=== PATIENT | male | born 1970 | race American Indian/Alaskan Native ===

== ENCOUNTER 2017-02-04 05:33 | Emergency (ER) | payer OTHER ==
[2017-02-04] MEDS ORDERED: NACL ONE (07:07)
[2017-02-04 07:25] LABS: Basophils % (Auto) 0.3 % (0.0-1.8); Eosinophils % (Auto) 3.4 % (0.0-4.3); Hematocrit 45.1 % (35.5-45.6); Hemoglobin 15.2 gm/dl (11.8-15.2); Mean Corpuscular HGB Conc 34 % (32-34); Mean Corpuscular Hemoglobin 31 pg (28-32); Mean Corpuscular Volume 92 fl (84-94); Platelet Count 180 K/mm3 (140-440); Red Cell Distribution Width 13.9 % (13.2-15.2); White Blood Count 16.6 K/mm3 (4.5-11.0)
[2017-02-04 07:46] LABS: Alanine Aminotransferase 25 units/L (7-56); Albumin 3.8 g/dL (3.9-5); Albumin/Globulin Ratio 1.1 %; Alkaline Phosphatase 77 units/L (35-129); Anion Gap 19 mmol/L; BUN/Creatinine Ratio 8.23; Bilirubin,Total 0.5 mg/dL (0.1-1.2); Blood Urea Nitrogen 14 mg/dL (9-20); Calcium 8.4 mg/dL (8.4-10.2); Carbon Dioxide 23 mmol/L (22-30); Chloride 99.5 mmol/L (98-107); Glucose 112 mg/dL (75-100); Sodium 138 mmol/L (137-145); Total Protein 7.4 g/dL (6.3-8.2)
[2017-02-04 07:48] LABS: Bilirubin,Direct < 0.2 mg/dL (0-0.2)
--- NOTE | 2017-02-04 08:12 | Cat Scan Report ---
FINAL REPORT EXAM: CT HEAD/BRAIN WO CON HISTORY: Seizure TECHNIQUE: CT of the head was performed. No intravenous contrast was administered. PRIORS: None. FINDINGS: There is no evidence of intracranial hemorrhage. There is no edema, mass effect or midline shift. There are no abnormal extra-axial fluid collections. The ventricles are appropriate for brain volume. There is no skull fracture seen. There is mild sinus mucosal thickening. There is a retention cyst in the right maxillary sinus. IMPRESSION: There is no acute intracranial abnormality identified.
[2017-02-04 08:17] LABS: Urine Drugs of Abuse Note Disclamer
[2017-02-04] MEDS ORDERED: NORMODYNE IV ONE (08:51)
[2017-02-04] MEDS ORDERED: K-DUR PO ONE (09:24)
[2017-02-04] MEDS ORDERED: CATAPRES PO ONE (09:24)
[2017-02-04] MEDS ORDERED: KEPPRA PO ONE (09:25)
--- NOTE | 2017-02-04 09:26 | Emergency Department Report ---
ED Seizure HPI - General Chief Complaint: Seizure Stated Complaint: SEIZURE Time Seen by Provider: 02/04/17 06:55 Source: patient, family, EMS Mode of arrival: Stretcher Limitations: Other - History of Present Illness Initial Comments: Patient tells me he had an absence type Episode on a Plane about 6 Months Ago. In Retrospect, He Thinks This May Have Been a Seizure. Complaint: seizure -: Sudden, minutes(s) Description of Episode: tonic-clonic movement -: second(s), minutes(s) Witnessed:: Yes Trauma: Yes (tongue) Seizure History: other Place: home Possible Precipitating Event: none Associated Symptoms: denies other symptoms (suffered tongue injury) Treatments Prior to Arrival: none - Related Data Previous Rx's Medication Instructions Recorded Last Taken Type Lisinopril [Zestril TAB] 40 mg PO QDAY #30 tablet 10/15/13 Unknown Rx amLODIPine [Norvasc] 5 mg PO DAILY #30 tab 02/04/17 Unknown Rx hydrALAZINE [Apresoline TAB] 25 mg PO TID #90 tablet 02/04/17 Unknown Rx levETIRAcetam [Keppra TAB] 500 mg PO BID #1 tablet 02/04/17 Unknown Rx Allergies Allergy/AdvReac Type Severity Reaction Status Date / Time No Known Allergies Allergy Verified 10/15/13 00:45 ED Review of Systems ROS: Stated complaint: SEIZURE Other details as noted in HPI Constitutional: denies: chills, fever Eyes: denies: eye pain, eye discharge, vision change ENT: as per HPI. denies: ear pain, throat pain Respiratory: denies: cough, shortness of breath, wheezing Cardiovascular: denies: chest pain, palpitations Endocrine: no symptoms reported Gastrointestinal: denies: abdominal pain, nausea, diarrhea Genitourinary: denies: urgency, dysuria Musculoskeletal: denies: back pain, joint swelling, arthralgia Skin: denies: rash, lesions Neurological: denies: headache, weakness, paresthesias Psychiatric: denies: anxiety, depression Hematological/Lymphatic: denies: easy bleeding, easy bruising ED Past Medical Hx - Past Medical History Previous Medical History?: Yes Hx Hypertension: Yes Hx Seizures: Yes - Surgical History Additional Surgical History: left arm surg due to fx. - Social History Smoking Status: Unknown if ever smoked Substance Use Type: None - Medications Home Medications: Home Medications Medication Instructions Recorded Confirmed Last Taken Type Lisinopril [Zestril TAB] 40 mg PO QDAY #30 tablet 10/15/13 02/04/17 Unknown Rx amLODIPine [Norvasc] 5 mg PO DAILY #30 tab 02/04/17 Unknown Rx hydrALAZINE [Apresoline TAB] 25 mg PO TID #90 tablet 02/04/17 Unknown Rx levETIRAcetam [Keppra TAB] 500 mg PO BID #1 tablet 02/04/17 Unknown Rx ED Physical Exam - General Limitations: Other General appearance: alert, in no apparent distress - Head Head exam: Present: atraumatic, normocephalic - Eye Eye exam: Present: normal appearance - ENT ENT exam: Present: mucous membranes moist, other (tongue abrasion on right) - Neck Neck exam: Present: normal inspection. Absent: tenderness, meningismus - Respiratory Respiratory exam: Present: normal lung sounds bilaterally. Absent: respiratory distress - Cardiovascular Cardiovascular Exam: Present: regular rate, normal rhythm. Absent: systolic murmur, diastolic murmur, rubs, gallop - GI/Abdominal GI/Abdominal exam: Present: soft, normal bowel sounds. Absent: distended, tenderness, guarding, rebound, rigid - Rectal Rectal exam: Present: deferred - Extremities Exam Extremities exam: Present: normal inspection - Back Exam Back exam: Present: normal inspection - Neurological Exam Neurological exam: Present: alert, oriented X3, CN II-XII intact. Absent: motor sensory deficit - Psychiatric Psychiatric exam: Present: normal affect, normal mood - Skin Skin exam: Present: warm, dry, intact, normal color. Absent: rash ED Course Vital Signs 02/04/17 02/04/17 02/04/17 05:44 05:51 06:01 Temperature 98.4 F Pulse Rate 93 H 95 H 91 H Respiratory 23 20 18 Rate Blood Pressure 166/112 166/112 O2 Sat by Pulse 96 96 96 Oximetry 02/04/17 02/04/17 02/04/17 06:31 07:01 07:31 Temperature Pulse Rate 93 H 95 H 94 H Respiratory 12 11 L 11 L Rate Blood Pressure 166/112 166/112 166/112 O2 Sat by Pulse 98 99 99 Oximetry 02/04/17 02/04/17 02/04/17 08:00 08:31 09:00 Temperature Pulse Rate 89 86 83 Respiratory 10 L 12 10 L Rate Blood Pressure 195/117 195/117 164/104 O2 Sat by Pulse 100 99 99 Oximetry 02/04/17 02/04/17 02/04/17 09:02 09:11 09:20 Temperature Pulse Rate 91 H 83 83 Respiratory 14 10 L Rate Blood Pressure 195/117 164/104 172/114 O2 Sat by Pulse 100 100 Oximetry 02/04/17 02/04/17 02/04/17 09:31 09:33 09:41 Temperature Pulse Rate 84 91 H 82 Respiratory 13 11 L Rate Blood Pressure 172/114 172/114 172/114 O2 Sat by Pulse 99 100 Oximetry 02/04/17 02/04/17 02/04/17 09:51 10:00 10:11 Temperature Pulse Rate 84 81 82 Respiratory 16 20 18 Rate Blood Pressure 181/116 179/112 179/112 O2 Sat by Pulse 100 100 99 Oximetry 02/04/17 02/04/17 02/04/17 10:21 10:31 10:41 Temperature Pulse Rate 80 81 81 Respiratory 19 19 18 Rate Blood Pressure 179/112 179/112 172/106 O2 Sat by Pulse 97 98 98 Oximetry 02/04/17 02/04/17 10:51 11:00 Temperature Pulse Rate 81 80 Respiratory 20 17 Rate Blood Pressure 172/106 172/109 O2 Sat by Pulse 98 100 Oximetry - Reevaluation(s) Reevaluation #1: She remained neurologically intact. He did not develop signs of a withdrawal syndrome. He did not have any further seizure. He was given by mouth Keppra. He was given a pressure management. He was told that driving would not be permitted under [place] law until he was cleared by a neurologist. He is referred to a neurologist. He was discharged in stable condition. His potassium was repleted. 02/04/17 11:33 ED Medical Decision Making - Lab Data Result diagrams: 02/04/17 07:12 02/04/17 07:12 Laboratory Results - last 24 hr 02/04/17 02/04/17 02/04/17 07:12 07:12 07:12 WBC 16.6 H RBC 4.90 Hgb 15.2 Hct 45.1 MCV 92 MCH 31 MCHC 34 RDW 13.9 Plt Count 180 Lymph % (Auto) 6.7 L [place] % (Auto) 5.1 Eos % (Auto) 3.4 Baso % (Auto) 0.3 Lymph # 1.1 L [place] # 0.8 Eos # 0.6 H Baso # 0.0 Seg Neutrophils % 84.5 H Seg Neutrophils # 14.0 H Sodium 138 Potassium 3.0 L Chloride 99.5 Carbon Dioxide 23 Anion Gap 19 BUN 14 Creatinine 1.7 H Estimated GFR 53 BUN/Creatinine Ratio 8.23 Glucose 112 H Calcium 8.4 Total Bilirubin 0.5 Direct Bilirubin < 0.2 AST 24 ALT 25 Alkaline Phosphatase 77 Total Protein 7.4 Albumin 3.8 L Albumin/Globulin Ratio 1.1 Plasma/Serum Alcohol < 0.01 Critical care attestation.: If time is entered above; I have spent that time in minutes in the direct care of this critically ill patient, excluding procedure time. ED Disposition Clinical Impression: Grand mal seizure, Hypokalemia Hypertension Qualifiers: Hypertension type: essential hypertension Qualified Code(s): I10 - Essential ( primary) hypertension Disposition: DISCHARGED TO HOME OR SELFCARE Is pt being admited?: No Does the pt Need Aspirin: No Condition: Stable Instructions: Hypertension (ED), Recurrent Seizures Adult (ED), Hypokalemia (ED ) Additional Instructions: YOu must be cleared by a neurologist before you can safely drive or operate heavy machinery.. Rx Keppra and medicine for your blood pressure. Uric kidney function is slow and not requires follow-up with her [employer] fscm developer as well. I'm going to refer you to multiple physicians for your follow-up care. Return any acute change or problem. Dr. Cao is an neurologist. Dr. Jesus is a hypertension and kidney specialist. Dr. Cortés is a family physician. [facility] is a local clinic. Prescriptions: amLODIPine [Norvasc] 5 mg PO DAILY #30 tab hydrALAZINE [Apresoline TAB] 25 mg PO TID #90 tablet levETIRAcetam [Keppra TAB] 500 mg PO BID #1 tablet Referrals: PRIMARY CARE, [Primary Care Provider] - 3-5 Days SHANA CAO MD [Staff Physician] - 3-5 Days PATSY YIN MD [Staff Physician] - 3-5 Days KEITH CORTÉS JR, MD [Staff Physician] - 3-5 Days Time of Disposition: 11:40
[2017-02-04 12:03] VITALS: BP 167/107
== END 2017-02-04 12:03 | disposition home or self-care (01) ==
LOC: ED 05:33
DX: G40.409 Other generalized epilepsy and epileptic syndromes, not intractable, without status epilepticus (principal); I10 Essential (primary) hypertension; E87.6 Hypokalemia
CPT/HCPCS: 36415; 70450; 80048; 80074; 80307; 82962; 85025; 96374; 99285; G0480; 80320

== ENCOUNTER 2018-08-11 15:09 | Inpatient (IN) | payer OTHER ==
[2018-08-11 15:55] LABS: Bilirubin,Urine NEG (Negative); Blood,Urine LG (Negative); Mucus,Urine FEW /HPF; Urobilinogen,Urine < 2.0 mg/dL (<2.0)
[2018-08-11 15:57] LABS: Color,Urine Yellow (Yellow); Protein,Urine >500 mg/dL (Negative); RBC,Urine > 182.0 /HPF (0.0-6.0)
[2018-08-11] MEDS ORDERED: CATAPRES PO ONE (16:26)
--- NOTE | 2018-08-11 16:40 | Emergency Department Report ---
HPI - General Chief Complaint: Urogenital-Male Time Seen by Provider: 08/11/18 16:26 - HPI HPI: Room 25 The patient is a 47-year-old male presenting with a chief complaint of hematuria. The patient states the symptoms began 2 weeks ago when he had material for approximately 1 week. Patient states has been painless. The patient states he hematuria resolved but then today he return with gross hematuria that contained blood clots. Patient denies pain of any type. Patient denies any penile lesions. Patient denies dysuria. She denies any history of fever. The patient states he lost approximately 20 pounds in the past year and is unexplained. How he is feeling now the patient replies he feels fine Location: Genitourinary system Duration: [See above] Quality: Painless Severity: Gross hematuria with clots Modifying factors: None Context: [see above] Mode of transportation: Unknown ED Past Medical Hx - Past Medical History Hx Hypertension: Yes Hx Seizures: Yes - Surgical History Past Surgical History?: Yes Additional Surgical History: left arm surg due to fx. - Family History Family history: no significant - Social History Smoking Status: Never Smoker Substance Use Type: Alcohol - Medications Home Medications: Home Medications Medication Instructions Recorded Confirmed Last Taken Type Lisinopril [Zestril TAB] 40 mg PO QDAY #30 tablet 10/15/13 02/04/17 Unknown Rx amLODIPine [Norvasc] 5 mg PO DAILY #30 tab 02/04/17 Unknown Rx hydrALAZINE [Apresoline TAB] 25 mg PO TID #90 tablet 02/04/17 Unknown Rx levETIRAcetam [Keppra TAB] 500 mg PO BID #1 tablet 02/04/17 Unknown Rx ED Review of Systems ROS: Stated complaint: BLEEDING FROM PENIS Other details as noted in HPI Constitutional: denies: fever Eyes: denies: eye pain ENT: denies: throat pain Respiratory: no symptoms reported Cardiovascular: denies: chest pain Endocrine: no symptoms reported, unexplained weight loss Gastrointestinal: denies: abdominal pain Genitourinary: hematuria. denies: dysuria, testicular pain Musculoskeletal: denies: back pain Neurological: denies: headache Physical Exam - Physical Exam Vital Signs: Vital Signs 08/11/18 08/11/18 15:22 15:29 Temperature 98.2 F Pulse Rate 109 H Respiratory 18 Rate Blood Pressure 240/152 Blood Pressure 243/143 [Left] O2 Sat by Pulse 100 Oximetry Physical Exam: GENERAL: The patient is well-developed well-nourished male lying on stretcher not appearing to be in acute distress. [] HEENT: Normocephalic. Atraumatic. Extraocular motions are intact. Patient has moist mucous membranes. NECK: Supple. Trachea midline CHEST/LUNGS: Clear to auscultation. There is no respiratory distress noted. HEART/CARDIOVASCULAR: Regular. There is no tachycardia. There is no gallop rub or murmur. ABDOMEN: Abdomen is soft, nontender. Patient has normal bowel sounds. There is no abdominal distention. SKIN: There is no rash. There is no edema. There is no diaphoresis. NEURO: The patient is awake, alert, and oriented. The patient is cooperative. The patient has normal speech MUSCULOSKELETAL: There is no CVA tenderness. ED Course Vital Signs 08/11/18 08/11/18 15:22 15:29 Temperature 98.2 F Pulse Rate 109 H Respiratory 18 Rate Blood Pressure 240/152 Blood Pressure 243/143 [Left] O2 Sat by Pulse 100 Oximetry - Consultations Consultation #1: 08/11/18 17:55 [facility] called 08/11/18 18:[address] Navarro-states patient may be admitted at [facility] ED Medical Decision Making - Lab Data Result diagrams: 08/11/18 16:34 08/11/18 16:34 Laboratory Tests 08/11/18 08/11/18 08/11/18 16:34 16:34 16:34 WBC 8.3 RBC 4.10 Hgb 13.4 Hct 39.3 MCV 96 H MCH 33 H MCHC 34 RDW 14.1 Plt Count 189 Lymph % (Auto) 12.7 L [place] % (Auto) 5.7 Eos % (Auto) 3.6 Baso % (Auto) 0.9 Lymph # 1.1 L [place] # 0.5 Eos # 0.3 Baso # 0.1 Seg Neutrophils % 77.1 H Seg Neutrophils # 6.4 PT 14.0 INR 1.03 APTT 25.8 Sodium 138 Potassium 2.8 L* Chloride 96.8 L Carbon Dioxide 29 Anion Gap 15 BUN 36 H Creatinine 3.8 H Estimated GFR 21 BUN/Creatinine Ratio 9 Glucose 106 H Calcium 9.0 Total Bilirubin 0.70 AST 30 ALT 27 Alkaline Phosphatase 68 Total Protein 7.3 Albumin 3.8 L Albumin/Globulin Ratio 1.1 Urine Color Urine Turbidity Urine pH Ur Specific [place] Urine Protein Urine Glucose (UA) Urine Ketones Urine Blood Urine Nitrite Urine Bilirubin Urine Urobilinogen Ur Leukocyte Esterase Urine WBC (Auto) Urine RBC (Auto) U Epithel Cells (Auto) Urine Mucus 08/11/18 Unknown WBC RBC Hgb Hct MCV MCH MCHC RDW Plt Count Lymph % (Auto) [place] % (Auto) Eos % (Auto) Baso % (Auto) Lymph # [place] # Eos # Baso # Seg Neutrophils % Seg Neutrophils # PT INR APTT Sodium Potassium Chloride Carbon Dioxide Anion Gap BUN Creatinine Estimated GFR BUN/Creatinine Ratio Glucose Calcium Total Bilirubin AST ALT Alkaline Phosphatase Total Protein Albumin Albumin/Globulin Ratio Urine Color Yellow Urine Turbidity Slightly-cloudy Urine pH 5.0 Ur Specific [place] 1.018 Urine Protein >500 Urine Glucose (UA) Neg Urine Ketones Neg Urine Blood Lg Urine Nitrite Neg Urine Bilirubin Neg Urine Urobilinogen < 2.0 Ur Leukocyte Esterase Neg Urine WBC (Auto) 5.0 Urine RBC (Auto) > 182.0 U Epithel Cells (Auto) 2.0 Urine Mucus Few - Differential Diagnosis bladder mass, cystitis, renal mass, renal colic Critical care attestation.: If time is entered above; I have spent that time in minutes in the direct care of this critically ill patient, excluding procedure time. ED Disposition Clinical Impression: Hematuria, Acute renal failure, Bilateral pleural effusion, Hypokalemia, Hypertensive urgency Disposition: OP ADMIT IP TO THIS HOSP Is pt being admited?: Yes Does the pt Need Aspirin: No Condition: Fair Referrals: PRIMARY CARE, [Primary Care Provider] - 3-5 Days Time of Disposition: 18:15 (hospitalist paged (Dr Lozada))
[2018-08-11 16:53] LABS: Basophils # (Auto) 0.1 K/mm3 (0.0-0.1); Basophils % (Auto) 0.9 % (0.0-1.8); Eosinophils # (Auto) 0.3 K/mm3 (0.0-0.4); Eosinophils % (Auto) 3.6 % (0.0-4.3); Hematocrit 39.3 % (35.5-45.6); Hemoglobin 13.4 gm/dl (11.8-15.2); Lymphocytes # (Auto) 1.1 K/mm3 (1.2-5.4); Lymphocytes % (Auto) 12.7 % (13.4-35.0); Mean Corpuscular HGB Conc 34 % (32-34); Mean Corpuscular Hemoglobin 33 pg (28-32); Mean Corpuscular Volume 96 fl (84-94); Monocytes # (Auto) 0.5 K/mm3 (0.0-0.8); Monocytes % (Auto) 5.7 % (0.0-7.3); Platelet Count 189 K/mm3 (140-440); Red Cell Distribution Width 14.1 % (13.2-15.2)
[2018-08-11 17:06] LABS: Albumin 3.8 g/dL (3.9-5)
[2018-08-11 17:17] LABS: INR 1.03 (0.87-1.13)
[2018-08-11 17:18] LABS: Partial Thromboplastin Time 25.8 Sec. (24.2-36.6)
--- NOTE | 2018-08-11 17:40 | Cat Scan Report ---
FINAL REPORT PROCEDURE: CT ABDOMEN PELVIS WO CON TECHNIQUE: Computerized axial tomography of the abdomen and pelvis was performed without intravenous contrast. This study is performed without intravascular contrast material and its sensitivity for abdominal and pelvic pathology, including neoplasms, inflammation, abscess, free fluid, thrombosis, arterial dissection and infarction, is reduced compared with a contrast enhanced study. HISTORY: hematuria, weight loss, acute renal failure COMPARISON: No prior studies are available for comparison. FINDINGS: Visualized lower thorax: Prominent heart size. Bilateral layering pleural effusions Liver: Normal size and attenuation. Spleen: Normal size and attenuation. Gallbladder and biliary system: Normal. Pancreas: Normal. Adrenals: Normal. Kidneys: No hydronephrosis or urolithiasis. GI tract: Appendix is visualized and does not appear inflamed. No bowel obstruction or inflammation is seen. Lymph nodes and mesentery: Normal. Vasculature: Normal. Bladder: Normal. Reproductive organs: Normal. Peritoneum: No free fluid. Musculoskeletal structures: There are degenerative disc changes at L5-S1. Other: None. IMPRESSION: Prominent heart size and bilateral pleural effusions. No bowel obstruction or inflammation. No hydronephrosis or urolithiasis.
--- NOTE | 2018-08-11 21:22 | History and Physical Report ---
History of Present Illness Date of examination: 08/11/18 Date of admission: 08/11/18 Chief complaint: Blood clots per urethra 1 day History of present illness: JOHNY The patient is a 47-year-old male presenting with a chief complaint of hematuria. The patient states the symptoms began 2 weeks ago when he had material for approximately 1 week. Patient states has been painless. The patient states he hematuria resolved but then today he return with gross hematuria that contained blood clots. Patient denies pain of any type. Patient denies any penile lesions. Patient denies dysuria. She denies any history of fever. The patient states he lost approximately 20 pounds in the past year and is unexplained. Now he is feeling better now. Past Medical History Hx Hypertension: Yes Hx Seizures: Yes Surgical History Past Surgical History?: Yes Additional Surgical History: left arm surg due to fx. Family History Family history: no significant Social History Smoking Status: Never Smoker Substance Use Type: Alcohol - Medications Home Medications: Home Medications Medication Instructions Recorded Confirmed Last Taken Type Lisinopril [Zestril TAB] 40 mg PO QDAY #30 tablet 10/15/13 02/04/17 Unknown Rx amLODIPine [Norvasc] 5 mg PO DAILY #30 tab 02/04/17 Unknown Rx hydrALAZINE [Apresoline TAB] 25 mg PO TID #90 tablet 02/04/17 Unknown Rx levETIRAcetam [Keppra TAB] 500 mg PO BID #1 tablet 02/04/17 Unknown Rx Review of Systems Stated complaint: BLEEDING FROM PENIS Other details as noted in HPI Constitutional: denies: fever Eyes: denies: eye pain ENT: denies: throat pain Respiratory: no symptoms reported Cardiovascular: denies: chest pain Endocrine: no symptoms reported, unexplained weight loss Gastrointestinal: denies: abdominal pain Genitourinary: hematuria. denies: dysuria, testicular pain Musculoskeletal: denies: back pain Neurological: denies: headache Medications and Allergies Allergies Allergy/AdvReac Type Severity Reaction Status Date / Time No Known Allergies Allergy Verified 10/15/13 00:45 Home Medications Medication Instructions Recorded Confirmed Last Taken Type Lisinopril [Zestril TAB] 40 mg PO QDAY #30 tablet 10/15/13 02/04/17 Unknown Rx amLODIPine [Norvasc] 5 mg PO DAILY #30 tab 02/04/17 Unknown Rx hydrALAZINE [Apresoline TAB] 25 mg PO TID #90 tablet 02/04/17 Unknown Rx levETIRAcetam [Keppra TAB] 500 mg PO BID #1 tablet 02/04/17 Unknown Rx Exam - Constitutional Vitals: Temp Pulse Resp BP Pulse Ox 98.2 F 100 H 18 208/137 98 08/11/18 15:22 08/11/18 17:00 08/11/18 17:25 08/11/18 17:45 08/11/18 17:45 General appearance: Present: no acute distress, well-nourished - EENT Eyes: Present: PERRL ENT: hearing intact, clear oral mucosa - Neck Neck: Present: supple, normal ROM - Respiratory Respiratory effort: normal Respiratory: bilateral: CTA - Cardiovascular Heart rate: 78 Rhythm: regular Heart Sounds: Present: S1 & S2. Absent: rub, click - Extremities Extremities: pulses symmetrical, No edema Peripheral Pulses: within normal limits - Abdominal General gastrointestinal: Present: soft, non-tender, non-distended, normal bowel sounds Male genitourinary: Present: normal - Rectal Rectal Exam: deferred - Integumentary Integumentary: Present: clear, warm, dry - Musculoskeletal Musculoskeletal: gait normal, strength equal bilaterally - Psychiatric Psychiatric: appropriate mood/affect, intact judgment & insight - Neurologic Neurologic: CNII-XII intact, moves all extremities - Allied Health Allied health notes reviewed: nursing, case management Results - Labs CBC & Chem 7: 08/12/18 06:54 08/11/18 16:34 Labs: Laboratory Last Values WBC 8.3 K/mm3 (4.5-11.0) 08/11/18 16:34 RBC 4.10 M/mm3 (3.65-5.03) 08/11/18 16:34 Hgb 13.4 gm/dl (11.8-15.2) 08/11/18 16:34 Hct 39.3 % (35.5-45.6) 08/11/18 16:34 MCV 96 fl (84-94) H 08/11/18 16:34 MCH 33 pg (28-32) H 08/11/18 16:34 MCHC 34 % (32-34) 08/11/18 16:34 RDW 14.1 % (13.2-15.2) 08/11/18 16:34 Plt Count 189 K/mm3 (140-440) 08/11/18 16:34 Lymph % (Auto) 12.7 % (13.4-35.0) L 08/11/18 16:34 [place] % (Auto) 5.7 % (0.0-7.3) 08/11/18 16:34 Eos % (Auto) 3.6 % (0.0-4.3) 08/11/18 16:34 Baso % (Auto) 0.9 % (0.0-1.8) 08/11/18 16:34 Lymph # 1.1 K/mm3 (1.2-5.4) L 08/11/18 16:34 [place] # 0.5 K/mm3 (0.0-0.8) 08/11/18 16:34 Eos # 0.3 K/mm3 (0.0-0.4) 08/11/18 16:34 Baso # 0.1 K/mm3 (0.0-0.1) 08/11/18 16:34 Seg Neutrophils % 77.1 % (40.0-70.0) H 08/11/18 16:34 Seg Neutrophils # 6.4 K/mm3 (1.8-7.7) 08/11/18 16:34 PT 14.0 Sec. (12.2-14.9) 08/11/18 16:34 INR 1.03 (0.87-1.13) 08/11/18 16:34 APTT 25.8 Sec. (24.2-36.6) 08/11/18 16:34 Sodium 138 mmol/L (137-145) 08/11/18 16:34 Potassium 2.8 mmol/L (3.6-5.0) L* 08/11/18 16:34 Chloride 96.8 mmol/L (98-107) L 08/11/18 16:34 Carbon Dioxide 29 mmol/L (22-30) 08/11/18 16:34 Anion Gap 15 mmol/L 08/11/18 16:34 BUN 36 mg/dL (9-20) H 08/11/18 16:34 Creatinine 3.8 mg/dL (0.8-1.5) H 08/11/18 16:34 Estimated GFR 21 ml/min 08/11/18 16:34 BUN/Creatinine Ratio 9 % 08/11/18 16:34 Glucose 106 mg/dL (75-100) H 08/11/18 16:34 Calcium 9.0 mg/dL (8.4-10.2) 08/11/18 16:34 Total Bilirubin 0.70 mg/dL (0.1-1.2) 08/11/18 16:34 AST 30 units/L (5-40) 08/11/18 16:34 ALT 27 units/L (7-56) 08/11/18 16:34 Alkaline Phosphatase 68 units/L (35-129) 08/11/18 16:34 Total Protein 7.3 g/dL (6.3-8.2) 08/11/18 16:34 Albumin 3.8 g/dL (3.9-5) L 08/11/18 16:34 Albumin/Globulin Ratio 1.1 % 08/11/18 16:34 Urine Color Yellow (Yellow) 08/11/18 Unknown Urine Turbidity Slightly-cloudy (Clear) 08/11/18 Unknown Urine pH 5.0 (5.0-7.0) 08/11/18 Unknown Ur Specific [place] 1.018 (1.003-1.030) 08/11/18 Unknown Urine Protein >500 mg/dL (Negative) 08/11/18 Unknown Urine Glucose (UA) Neg mg/dL (Negative) 08/11/18 Unknown Urine Ketones Neg mg/dL (Negative) 08/11/18 Unknown Urine Blood Lg (Negative) 08/11/18 Unknown Urine Nitrite Neg (Negative) 08/11/18 Unknown Urine Bilirubin Neg (Negative) 08/11/18 Unknown Urine Urobilinogen < 2.0 mg/dL (<2.0) 08/11/18 Unknown Ur Leukocyte Esterase Neg (Negative) 08/11/18 Unknown Urine WBC (Auto) 5.0 /HPF (0.0-6.0) 08/11/18 Unknown Urine RBC (Auto) > 182.0 /HPF (0.0-6.0) 08/11/18 Unknown U Epithel Cells (Auto) 2.0 /HPF (0-13.0) 08/11/18 Unknown Urine Mucus Few /HPF 08/11/18 Unknown - Imaging and Cardiology EKG: report reviewed Imaging and Cardiology: Abd CT: IMPRESSION: Prominent heart size and bilateral pleural effusions. No bowel obstruction or inflammation. No hydronephrosis or urolithiasis. Assessment and Plan Advance Directives: Yes (Full code) VTE prophylaxis?: Chemical Plan of care discussed with patient/family: Yes - Patient Problems (1) Hematuria Current Visit: Yes Status: Acute Qualifiers: Hematuria type: gross Qualified Code(s): R31.0 - Gross hematuria Plan to address problem: R/o Bladder carcinoma Urology consult (2) Hypokalemia Current Visit: Yes Status: Acute Plan to address problem: Supplemented (3) Hypertensive urgency Current Visit: Yes Status: Acute Plan to address problem: Noncompliance IV Hydralazine prn (4) Seizure disorder Current Visit: Yes Status: Chronic Plan to address problem: Cont Keppra (5) DVT prophylaxis Current Visit: Yes Status: Acute Plan to address problem: Only scd's
[2018-08-11] MEDS ORDERED: DILAUDID IV PRN (21:23)
[2018-08-11] MEDS ORDERED: SODIUM CHLORIDE FLUSH SYRINGE 10 ML IV PRN (21:23)
[2018-08-11] MEDS ORDERED: ZOFRAN IV PRN (21:23)
[2018-08-11] MEDS ORDERED: MORPHINE IV PRN (21:23)
[2018-08-11] MEDS ORDERED: PERCOCET 5/325 PO PRN (21:23)
[2018-08-11] MEDS ORDERED: TYLENOL PO PRN (21:23)
[2018-08-11] MEDS: SODIUM CHLORIDE FLUSH SYRINGE 10 ML IV SCH (22:25)
[2018-08-11] MEDS: D5NS 1,000 ML IV SCH (22:30)
[2018-08-11] MEDS: K-DUR PO SCH (22:30)
[2018-08-11] MEDS: NORVASC PO SCH (22:30)
[2018-08-11] MEDS: KEPPRA PO SCH (22:30)
[2018-08-11] MEDS: KCL 10MEQ/100ML 10 MEQ/100 ML BAG IV SCH (22:30)
[2018-08-11] MEDS: ZESTRIL PO SCH (23:00)
[2018-08-12] MEDS ORDERED: APRESOLINE IV PRN ×2 (02:04→07:41)
[2018-08-12] MEDS: KCL 10MEQ/100ML 10 MEQ/100 ML BAG IV SCH ×3 (02:20→04:28)
[2018-08-12] MEDS: K-DUR PO SCH ×2 (03:31→06:27)
[2018-08-12 07:18] LABS: Basophils # (Auto) 0.1 K/mm3 (0.0-0.1); Basophils % (Auto) 1.4 % (0.0-1.8); Eosinophils # (Auto) 0.3 K/mm3 (0.0-0.4); Eosinophils % (Auto) 4.8 % (0.0-4.3); Hematocrit 40.9 % (35.5-45.6); Hemoglobin 13.5 gm/dl (11.8-15.2); Lymphocytes # (Auto) 1.1 K/mm3 (1.2-5.4); Lymphocytes % (Auto) 15.8 % (13.4-35.0); Mean Corpuscular HGB Conc 33 % (32-34); Mean Corpuscular Hemoglobin 32 pg (28-32); Mean Corpuscular Volume 98 fl (84-94); Monocytes # (Auto) 0.4 K/mm3 (0.0-0.8); Monocytes % (Auto) 5.9 % (0.0-7.3); Platelet Count 184 K/mm3 (140-440); Red Blood Count 4.17 M/mm3 (3.65-5.03); Red Cell Distribution Width 14.6 % (13.2-15.2)
[2018-08-12 07:37] LABS: Albumin 3.7 g/dL (3.9-5); Calcium 8.4 mg/dL (8.4-10.2)
[2018-08-12] MEDS: D5NS 1,000 ML IV SCH (07:51)
[2018-08-12] MEDS: APRESOLINE PO SCH ×3 (08:11→22:44)
--- NOTE | 2018-08-12 09:56 | Progress Note ---
Assessment and Plan (1) Hematuria - resolved Current Visit: Yes Status: Acute Qualifiers: Hematuria type: gross Qualified Code(s): R31.0 - Gross hematuria Plan to address problem: R/o Bladder carcinoma Urology consult (2) Hypokalemia - Current Visit: Yes Status: Acute Plan to address problem: (3) Hypertensive urgency -cresolved Current Visit: Yes Status: Acute Plan to address problem: Noncompliance IV Hydralazine prn (4) Seizure disorder Current Visit: Yes Status: Chronic Plan to address problem: Cont Keppra (5) DVT prophylaxis Current Visit: Yes Status: Acute Plan to address problem: Only scd's Subjective Date of service: 08/12/18 Principal diagnosis: hematuria Interval history: Normal blood in the urine. No fever. No dysuria. Objective - Exam Narrative Exam: Constitutional: Well-nourished well-developed. In no distress Head: Normocephalic atraumatic Eyes: Pupils are equal round and reactive to light Nose: No enlarged turbinates, no septal deviation. Mouth: Moist mucous membranes. Neck: Supple no thyromegaly. No bruit. No JVD Heart: Regular rate and rhythm, S1-S2 abnormal. No rubs murmurs or gallop Lungs: Clear to auscultation bilaterally no rales or rhonchi Abdomen: Soft, nontender. Bowel sound are present. Extremities: No edema no cyanosis and no clubbing. Neuro: Alert oriented Oriented x3. No focal sensory or motor deficit. Skin: No rashes no hyperemic spots Psychiatry: Euthymic. Calm. - Constitutional Vitals: Vital Signs - 12hr 08/11/18 08/11/18 08/11/18 22:30 23:00 23:14 Temperature Pulse Rate 97 H 97 H 96 H Pulse Rate [ Right Radial] Respiratory 16 16 Rate Blood Pressure 215/137 212/133 Blood Pressure 191/121 [Left] O2 Sat by Pulse 98 97 Oximetry 08/11/18 08/11/18 08/12/18 23:41 23:53 02:19 Temperature 98.4 F Pulse Rate 98 H 99 H Pulse Rate [ Right Radial] Respiratory 18 20 Rate Blood Pressure 205/119 205/119 Blood Pressure [Left] O2 Sat by Pulse 98 98 Oximetry 08/12/18 08/12/18 08/12/18 05:00 08:11 08:12 Temperature 97.8 F Pulse Rate 92 H 92 H Pulse Rate [ 92 H Right Radial] Respiratory 18 20 Rate Blood Pressure 127/85 127/85 Blood Pressure [Left] O2 Sat by Pulse 97 Oximetry - Labs CBC & Chem 7: 08/12/18 06:54 08/12/18 06:54 Labs: Abnormal lab results 08/11/18 08/11/18 08/12/18 Range/Units 16:34 16:34 06:54 MCV 96 H 98 H (84-94) fl MCH 33 H (28-32) pg Lymph % (Auto) 12.7 L (13.4-35.0) % Eos % (Auto) 4.8 H (0.0-4.3) % Lymph # 1.1 L 1.1 L (1.2-5.4) K/mm3 Seg Neutrophils % 77.1 H 72.1 H (40.0-70.0) % Potassium 2.8 L* (3.6-5.0) mmol/L Chloride 96.8 L (98-107) mmol/L BUN 36 H (9-20) mg/dL Creatinine 3.8 H (0.8-1.5) mg/dL Glucose 106 H (75-100) mg/dL Albumin 3.8 L (3.9-5) g/dL 08/12/18 Range/Units 06:54 MCV (84-94) fl MCH (28-32) pg Lymph % (Auto) (13.4-35.0) % Eos % (Auto) (0.0-4.3) % Lymph # (1.2-5.4) K/mm3 Seg Neutrophils % (40.0-70.0) % Potassium (3.6-5.0) mmol/L Chloride (98-107) mmol/L BUN 33 H (9-20) mg/dL Creatinine 3.8 H (0.8-1.5) mg/dL Glucose (75-100) mg/dL Albumin 3.7 L (3.9-5) g/dL
[2018-08-12] MEDS: NORVASC PO SCH (10:31)
[2018-08-12] MEDS: KEPPRA PO SCH ×2 (10:32→22:44)
[2018-08-12] MEDS: ZESTRIL PO SCH (10:33)
[2018-08-12] MEDS: SODIUM CHLORIDE FLUSH SYRINGE 10 ML IV SCH ×2 (10:34→22:44)
--- NOTE | 2018-08-12 11:54 | Consultation ---
History of Present Illness - Reason for Consult Consult date: 08/12/18 - History of Present Illness The patient is a 47-year-old male presenting with a chief complaint of hematuria. The patient states the symptoms began 2 weeks ago. Patient states has been painless. The patient states he hematuria resolved but then today he return with gross hematuria that contained blood clots. Patient denies pain of any type. Patient denies any penile lesions. Patient denies dysuria. She denies any history of fever. The patient states he lost approximately 20 pounds in the past year and is unexplained. Now he is feeling better now. no previous gu hx CTAP - bilateral pleural effusions, DJD spine abd soft normal phallus A/P Gross Hemturia pt will need cysto 7:30 am tomorrow NPG after MN Medications and Allergies Allergies Allergy/AdvReac Type Severity Reaction Status Date / Time No Known Allergies Allergy Verified 10/15/13 00:45 Home Medications Medication Instructions Recorded Confirmed Last Taken Type Lisinopril [Zestril TAB] 40 mg PO QDAY #30 tablet 10/15/13 02/04/17 Unknown Rx amLODIPine [Norvasc] 5 mg PO DAILY #30 tab 02/04/17 Unknown Rx hydrALAZINE [Apresoline TAB] 25 mg PO TID #90 tablet 02/04/17 Unknown Rx levETIRAcetam [Keppra TAB] 500 mg PO BID #1 tablet 02/04/17 Unknown Rx Active Meds: Active Medications Acetaminophen (Tylenol) 650 mg PO Q4H PRN PRN Reason: Pain MILD(1-3)/Fever >100.5/VILLALOBOS Amlodipine Besylate (Norvasc) 5 mg PO DAILY [facility] Last Admin: 08/12/18 10:31 Dose: 5 mg Hydralazine HCl (Apresoline) 25 mg PO TID [facility] Last Admin: 08/12/18 08:11 Dose: 25 mg Hydralazine HCl (Apresoline) 10 mg IV Q3H PRN PRN Reason: Blood Pressure Hydromorphone HCl (Dilaudid) 1 mg IV Q3H PRN PRN Reason: Pain , Severe (7-10) Dextrose/Sodium Chloride (D5ns) 1,000 mls @ 100 mls/hr IV DIRECT [facility] Last Admin: 08/12/18 07:51 Dose: 100 mls/hr Levetiracetam (Keppra) 500 mg PO BID [facility] Last Admin: 08/12/18 10:32 Dose: 500 mg Lisinopril (Zestril) 40 mg PO QDAY [facility] Last Admin: 08/12/18 10:33 Dose: 40 mg Morphine Sulfate (Morphine) 2 mg IV Q4H PRN PRN Reason: Pain, Moderate (4-6) Ondansetron HCl (Zofran) 4 mg IV Q8H PRN PRN Reason: Nausea And Vomiting Oxycodone/Acetaminophen (Percocet 5/325) 1 tab PO Q6H PRN PRN Reason: Pain, Moderate (4-6) Sodium Chloride (Sodium Chloride Flush Syringe 10 Ml) 10 ml IV BID [facility] Last Admin: 08/12/18 10:34 Dose: 10 ml Sodium Chloride (Sodium Chloride Flush Syringe 10 Ml) 10 ml IV PRN PRN PRN Reason: LINE FLUSH Exam - Constitutional Vitals: Temp Pulse Resp BP Pulse Ox 97.8 F 90 20 116/76 97 08/12/18 05:00 08/12/18 10:33 08/12/18 08:12 08/12/18 10:33 08/12/18 05:00 Results - Labs CBC & Chem 7: 08/12/18 06:54 08/12/18 06:54 Labs: Abnormal lab results 08/11/18 08/11/18 08/12/18 Range/Units 16:34 16:34 06:54 MCV 96 H 98 H (84-94) fl MCH 33 H (28-32) pg Lymph % (Auto) 12.7 L (13.4-35.0) % Eos % (Auto) 4.8 H (0.0-4.3) % Lymph # 1.1 L 1.1 L (1.2-5.4) K/mm3 Seg Neutrophils % 77.1 H 72.1 H (40.0-70.0) % Potassium 2.8 L* (3.6-5.0) mmol/L Chloride 96.8 L (98-107) mmol/L BUN 36 H (9-20) mg/dL Creatinine 3.8 H (0.8-1.5) mg/dL Glucose 106 H (75-100) mg/dL Albumin 3.8 L (3.9-5) g/dL 08/12/18 Range/Units 06:54 MCV (84-94) fl MCH (28-32) pg Lymph % (Auto) (13.4-35.0) % Eos % (Auto) (0.0-4.3) % Lymph # (1.2-5.4) K/mm3 Seg Neutrophils % (40.0-70.0) % Potassium (3.6-5.0) mmol/L Chloride (98-107) mmol/L BUN 33 H (9-20) mg/dL Creatinine 3.8 H (0.8-1.5) mg/dL Glucose (75-100) mg/dL Albumin 3.7 L (3.9-5) g/dL
--- NOTE | 2018-08-12 14:20 | Anesthesia Consultation ---
Anesthesia Consult and Med Hx Date of service: 08/12/18 - Airway Anesthetic Teeth Evaluation: Poor ROM Head & Neck: Adequate Mental/Hyoid Distance: Adequate Mallampati Class: Class II Intubation Access Assessment: Probably Good - Pre-Operative Health Status ASA Pre-Surgery Classification: ASA2 Proposed Anesthetic Plan: General - Pulmonary Hx Smoking: No - Cardiovascular System Hx Hypertension: Yes - Central Nervous System Hx Seizures: Yes Hx Psychiatric Problems: No - Other Systems Hx Cancer: No
[2018-08-13] MEDS: D5NS 1,000 ML IV SCH (02:55)
[2018-08-13] MEDS ORDERED: ceFAZolin 2 GM in NACL 0.9% 100 ML IV ONE (06:29)
[2018-08-13] MEDS ORDERED: ANCEF/STERILE WATER 2 GM/20 ML 2 GM/20 ML SYRINGE IV NR (06:30)
[2018-08-13] MEDS ORDERED: VERSED IV PRN (06:56)
[2018-08-13] MEDS ORDERED: LACTATED RINGERS 1,000 ML IV SCH (07:00)
[2018-08-13] MEDS ORDERED: NACL 0.9% 1000 ML 1,000 ML ONE (07:15)
[2018-08-13] MEDS ORDERED: DILAUDID IV PRN (07:39)
--- NOTE | 2018-08-13 07:39 | Anesthesia Day of Surgery ---
Anesthesia Day of Surgery - Day of Surgery Patient Examined: Yes Patient H&P Reviewed: Yes Patient is NPO: Yes
[2018-08-13] MEDS ORDERED: SUBLIMAZE ONE (07:43)
[2018-08-13] MEDS ORDERED: DIPRIVAN 10 MG/ML IV ONE (07:43)
[2018-08-13] MEDS ORDERED: XYLOCAINE MPF 2% ONE (07:43)
[2018-08-13] MEDS ORDERED: NORMODYNE IV ONE (07:55)
--- NOTE | 2018-08-13 08:17 | Progress Note ---
Subjective Date of service: 08/13/18 Principal diagnosis: hematuria Interval history: The patient is a 47-year-old male presenting with a chief complaint of hematuria. The patient states the symptoms began 2 weeks ago. Patient states has been painless. The patient states he hematuria resolved but then today he return with gross hematuria that contained blood clots. Patient denies pain of any type. Patient denies any penile lesions. Patient denies dysuria. She denies any history of fever. The patient states he lost approximately 20 pounds in the past year and is unexplained. Now he is feeling better now. no previous gu hx CTAP - bilateral pleural effusions, DJD spine ?family hx of heart disease per pt this morning----pt BP high found to have abnormal heart tracing in operative suite discussed with anesthesia----surgery cancelled needs cardiac eval spoke with Objective - Constitutional Vitals: Vital Signs - 12hr 08/12/18 08/12/18 08/13/18 22:44 23:11 05:03 Temperature 98.8 F 99.0 F Pulse Rate 94 H 94 H 93 H Respiratory 20 20 Rate Blood Pressure 149/94 154/96 150/94 Blood Pressure [Left] O2 Sat by Pulse 97 98 Oximetry 08/13/18 08/13/18 08/13/18 06:08 06:19 06:20 Temperature 98.4 F Pulse Rate 100 H 100 H 100 H Respiratory Rate Blood Pressure 193/115 Blood Pressure 215/119 193/115 [Left] O2 Sat by Pulse Oximetry - Labs CBC & Chem 7: 08/12/18 06:54 08/12/18 06:54
[2018-08-13] MEDS: KEPPRA PO SCH ×2 (10:25→21:17)
[2018-08-13] MEDS: NORVASC PO SCH (10:25)
[2018-08-13] MEDS: ZESTRIL PO SCH (10:27)
[2018-08-13] MEDS: APRESOLINE PO SCH ×3 (10:33→21:17)
--- NOTE | 2018-08-13 11:04 | Consultation ---
History of Present Illness Consult date: 08/13/18 Consult reason: pre op evaluation History of present illness: Patient is a 47-year-old man who is admitted to the hospital with acute onset hematuria. Today, he was undergoing cystoscopy procedure, and just before induction of anesthesia he was placed on a monitor tech, which reported abnormal ST depression. This prompted a cancellation of the surgical procedure and cardiac consultation was requested. The patient has no cardiac symptoms. There is no chest pain, no shortness of breath, no palpitations, no lower extremity edema. His past medical history is notable for chronic hypertension, for which he admits to poor medical compliance and outpatient follow-up over the years. He also has a history of seizure disorder and chronic kidney disease. There is no cardiac history. I reviewed his ECG done after constellation of his surgery. There is normal sinus rhythm, left ventricular hypertrophy with repolarization abnormalities of LVH, consistent with his chronic hypertension. In comparison with an ECG dated back to 2012, there are no new changes except for enhanced prominence of the repolarization abnormalities of LVH. With regards to his chronic kidney disease, there has been an acute worsening of his creatinine. It was 1.7 about a year ago 2017, and on this presentation it is 3.8. Past History Past Medical History: hypertension, renal failure, seizures Medications and Allergies Allergies Allergy/AdvReac Type Severity Reaction Status Date / Time No Known Allergies Allergy Verified 10/15/13 00:45 Home Medications Medication Instructions Recorded Confirmed Last Taken Type Lisinopril [Zestril TAB] 40 mg PO QDAY #30 tablet 10/15/13 02/04/17 Unknown Rx amLODIPine [Norvasc] 5 mg PO DAILY #30 tab 02/04/17 Unknown Rx hydrALAZINE [Apresoline TAB] 25 mg PO TID #90 tablet 02/04/17 Unknown Rx levETIRAcetam [Keppra TAB] 500 mg PO BID #1 tablet 02/04/17 Unknown Rx Active Meds: Active Medications Acetaminophen (Tylenol) 650 mg PO Q4H PRN PRN Reason: Pain MILD(1-3)/Fever >100.5/VILLALOBOS Hydralazine HCl (Apresoline) 25 mg PO TID [facility] Last Admin: 08/13/18 10:33 Dose: 25 mg Hydralazine HCl (Apresoline) 10 mg IV Q3H PRN PRN Reason: Blood Pressure Last Admin: 08/13/18 06:19 Dose: 10 mg Hydromorphone HCl (Dilaudid) 1 mg IV Q3H PRN PRN Reason: Pain , Severe (7-10) Hydromorphone HCl (Dilaudid) 0.5 mg IV Q10MIN PRN PRN Reason: Pain , Severe (7-10) Stop: 08/13/18 20:00 Dextrose/Sodium Chloride (D5ns) 1,000 mls @ 100 mls/hr IV DIRECT [facility] Last Admin: 08/13/18 02:55 Dose: 100 mls/hr Cefazolin Sodium (Ancef/Sterile Water 2 Gm/20 Ml) 2 gm in 20 mls @ 80 mls/hr IV PREOP NR Stop: 08/13/18 17:00 Lactated Ringer's (Lactated Ringers) 1,000 mls @ 75 mls/hr IV DIRECT [facility] Stop: 08/14/18 06:59 Last Admin: 08/13/18 07:20 Dose: 75 mls/hr Levetiracetam (Keppra) 500 mg PO BID [facility] Last Admin: 08/13/18 10:25 Dose: 500 mg Midazolam HCl (Versed) 2 mg IV PREOP PRN PRN Reason: Anxiety Stop: 08/13/18 23:59 Last Admin: 08/13/18 07:20 Dose: 2 mg Morphine Sulfate (Morphine) 2 mg IV Q4H PRN PRN Reason: Pain, Moderate (4-6) Nifedipine (Procardia Xl) 60 mg PO QDAY [facility] Ondansetron HCl (Zofran) 4 mg IV Q8H PRN PRN Reason: Nausea And Vomiting Oxycodone/Acetaminophen (Percocet 5/325) 1 tab PO Q6H PRN PRN Reason: Pain, Moderate (4-6) Sodium Chloride (Sodium Chloride Flush Syringe 10 Ml) 10 ml IV BID [facility] Last Admin: 08/12/18 22:44 Dose: 10 ml Sodium Chloride (Sodium Chloride Flush Syringe 10 Ml) 10 ml IV PRN PRN PRN Reason: LINE FLUSH Review of Systems Cardiovascular: shortness of breath, no chest pain, no orthopnea, no palpitations, no rapid/irregular heart beat, no edema, no syncope, no lightheadedness Physical Examination Vital Signs Temp Pulse Resp BP Pulse Ox 98.2 F 109 H 18 240/152 100 08/11/18 15:22 08/11/18 15:22 08/11/18 15:22 08/11/18 15:22 08/11/18 15:22 General appearance: no acute distress HEENT: Positive: PERRL Neck: Positive: neck supple Cardiac: Positive: Reg Rate and Rhythm Lungs: Positive: Decreased Breath Sounds Neuro: Positive: Grossly Intact Abdomen: Positive: Soft Male genitourinary: Positive: deferred Skin: Positive: Clear Extremities: Absent: edema Results 08/12/18 06:54 08/12/18 06:54 EKG interpretations - Telemetry EKG Rhythm: Sinus Rhythm Repolarization changes or abnormalities: repolarization abn secondary to ventricular hypertrophy Assessment and Plan - Patient Problems (1) Preoperative cardiovascular examination Current Visit: Yes Status: Acute Plan to address problem: Patient has no cardiac symptoms, looks and feels well, ECG as described changes of left ventricular hypertrophy consistent with his chronic and often poorly controlled hypertension. It is okay to proceed with cystoscopy, low cardiac risk, we will add additional recommendations for perioperative blood pressure management. (2) Hypertension Current Visit: Yes Status: Acute Plan to address problem: We will discontinue lisinopril due to his accelerating kidney disease, stop amlodipine and use Procardia XL and a beta kira for hypertension management. I will recommend consultation with the product marketing specialist for management of his acute on chronic renal failure.
[2018-08-13] MEDS: PROCARDIA XL PO SCH (12:09)
--- NOTE | 2018-08-13 13:03 | Consultation ---
History of Present Illness - Reason for Consult Consult date: 08/13/18 acute renal failure, chronic renal failure, hypokalemia - History of Present Illness The patient is a 47 YO male with medical history significant for Poorly controlled HTN, CKD stage 3 and Seizure disorder who presented to [facility] ED with c /o blood in the urine. The patient states that the symptom began about 2 weeks ago with intermittent blood stained urine that lasted for few days. It was not associated with any pain. The hematuria returned on the day of presentation and associated with blood clots. Patient denies any pain, dysuria, penile lesions, fever, chills, abd pain, weakness, rash, cp, cough, sob, dizziness or syncope. No h/o kidney stone or NSAID intake. His creatinine was 3.8, increased from 1.7 in January 2017. Past History Past Medical History: hypertension, renal failure, seizures Medications and Allergies Allergies Allergy/AdvReac Type Severity Reaction Status Date / Time No Known Allergies Allergy Verified 10/15/13 00:45 Home Medications Medication Instructions Recorded Confirmed Last Taken Type Lisinopril [Zestril TAB] 40 mg PO QDAY #30 tablet 10/15/13 02/04/17 Unknown Rx amLODIPine [Norvasc] 5 mg PO DAILY #30 tab 02/04/17 Unknown Rx hydrALAZINE [Apresoline TAB] 25 mg PO TID #90 tablet 02/04/17 Unknown Rx levETIRAcetam [Keppra TAB] 500 mg PO BID #1 tablet 02/04/17 Unknown Rx Active Meds: Active Medications Acetaminophen (Tylenol) 650 mg PO Q4H PRN PRN Reason: Pain MILD(1-3)/Fever >100.5/VILLALOBOS Hydralazine HCl (Apresoline) 25 mg PO TID [facility] Last Admin: 08/13/18 10:33 Dose: 25 mg Hydralazine HCl (Apresoline) 10 mg IV Q3H PRN PRN Reason: Blood Pressure Last Admin: 08/13/18 06:19 Dose: 10 mg Hydromorphone HCl (Dilaudid) 1 mg IV Q3H PRN PRN Reason: Pain , Severe (7-10) Hydromorphone HCl (Dilaudid) 0.5 mg IV Q10MIN PRN PRN Reason: Pain , Severe (7-10) Stop: 08/13/18 20:00 Dextrose/Sodium Chloride (D5ns) 1,000 mls @ 100 mls/hr IV DIRECT [facility] Last Admin: 08/13/18 02:55 Dose: 100 mls/hr Cefazolin Sodium (Ancef/Sterile Water 2 Gm/20 Ml) 2 gm in 20 mls @ 80 mls/hr IV PREOP NR Stop: 08/13/18 17:00 Lactated Ringer's (Lactated Ringers) 1,000 mls @ 75 mls/hr IV DIRECT [facility] Stop: 08/14/18 06:59 Last Admin: 08/13/18 07:20 Dose: 75 mls/hr Levetiracetam (Keppra) 500 mg PO BID [facility] Last Admin: 08/13/18 10:25 Dose: 500 mg Metoprolol Tartrate (Lopressor) 25 mg PO Q8HR [facility] Midazolam HCl (Versed) 2 mg IV PREOP PRN PRN Reason: Anxiety Stop: 08/13/18 23:59 Last Admin: 08/13/18 07:20 Dose: 2 mg Morphine Sulfate (Morphine) 2 mg IV Q4H PRN PRN Reason: Pain, Moderate (4-6) Nifedipine (Procardia Xl) 60 mg PO QDAY [facility] Last Admin: 08/13/18 12:09 Dose: 60 mg Ondansetron HCl (Zofran) 4 mg IV Q8H PRN PRN Reason: Nausea And Vomiting Oxycodone/Acetaminophen (Percocet 5/325) 1 tab PO Q6H PRN PRN Reason: Pain, Moderate (4-6) Sodium Chloride (Sodium Chloride Flush Syringe 10 Ml) 10 ml IV BID [facility] Last Admin: 08/12/18 22:44 Dose: 10 ml Sodium Chloride (Sodium Chloride Flush Syringe 10 Ml) 10 ml IV PRN PRN PRN Reason: LINE FLUSH Review of Systems Constitutional: weight loss (unintentional weight loss of 15 lbs over the past year), poor appetite, no weight gain, no fever, no chills, no weakness Cardiovascular: no chest pain, no orthopnea, no edema, no syncope, no lightheadedness, no shortness of breath, no dyspnea on exertion, no leg edema, no decreased exercise tolerance Respiratory: no cough, no hemoptysis, no shortness of breath, no dyspnea on exertion Gastrointestinal: no abdominal pain, no nausea, no vomiting, no diarrhea Genitourinary Male: hematuria, no dysuria, no discharge, no genital pain, no genital sores, no kidney stones Rectal: no bleeding Musculoskeletal: no muscle cramps, no gait dysfunction Integumentary: no rash, no redness, no wounds, no jaundice Neurological: seizures, no head injury, no paralysis, no weakness, no syncope, no vertigo, no headaches, no aphasia, no confusion, no double vision, no loss of vision, no paralysis Psychiatric: no memory loss Endocrine: weight change Exam - Vital Signs Vital signs: Vital Signs Temp Pulse Resp BP Pulse Ox 98.2 F 109 H 18 240/152 100 08/11/18 15:22 08/11/18 15:22 08/11/18 15:22 08/11/18 15:22 08/11/18 15:22 - General Appearance General appearance: well-developed, well-nourished, appears stated age, other ( not in distress) EENT: ATNC, PERRL, mucous membranes dry, hearing intact, vision intact Neck: Present: neck supple, trachea midline Respiratory: Clear to Ascultation Heart: regular, normal heart rate, S1S2, no murmurs Gastrointestinal: Present: normoactive bowel sounds. Absent: tenderness Integumentary: no rash, warm and dry Neurologic: no focal deficit, no asterixis, alert and oriented x3 Musculoskeletal: Present: other (no edema) Psychiatric: cooperative Results - Lab Results 08/12/18 06:54 08/13/18 13:08 Most recent lab results Calcium 8.4 mg/dL (8.4-10.2) 08/12/18 06:54 - Image Kidney/bladder ultrasound: other Assessment and Plan 1. Acute kidney injury: IQRA superimposed on CKD. Suspect Vasomotor / hemodynamic IQRA. Continue IV fluids. Monitor renal function. Some component of progressive CKD due to poorly controlled HTN. 2. Chronic kidney disease: Hypertensive Nephropathy. Proteinuria noted. 3. Electrolytes: Hypokalemia, replete K. 4. Hematuria: Will do antibodies to r/o any GN. Followed by Urologist. 5. Uncontrolled HTN: Improving.
[2018-08-13 13:46] LABS: Calcium 8.3 mg/dL (8.4-10.2)
[2018-08-13] MEDS: LOPRESSOR PO SCH ×2 (14:24→21:17)
[2018-08-13] MEDS: SODIUM CHLORIDE FLUSH SYRINGE 10 ML IV SCH ×2 (14:25→21:19)
[2018-08-13 16:10] LABS: Creatinine,Urine 134.6 mg/dL (0.1-20.0); Protein/Creatinine Ratio,Urine 1.04
--- NOTE | 2018-08-13 17:01 | Progress Note ---
Assessment and Plan - Patient Problems (1) Hematuria Current Visit: Yes Status: Acute Qualifiers: Hematuria type: gross Qualified Code(s): R31.0 - Gross hematuria (2) Hypokalemia Current Visit: Yes Status: Acute (3) Hypertensive urgency Current Visit: Yes Status: Acute (4) Seizure disorder Current Visit: Yes Status: Chronic (5) DVT prophylaxis Current Visit: Yes Status: Acute Subjective Date of service: 08/13/18 Principal diagnosis: hematuria Objective - Constitutional Vitals: Vital Signs - 12hr 08/13/18 08/13/18 08/13/18 05:03 06:08 06:19 Temperature 99.0 F Pulse Rate 93 H 100 H 100 H Respiratory 20 Rate Blood Pressure 150/94 193/115 Blood Pressure 215/119 [Left] O2 Sat by Pulse 98 Oximetry 08/13/18 08/13/18 08/13/18 06:20 06:50 08:02 Temperature 98.4 F 98.5 F 97.7 F Pulse Rate 100 H 94 H 76 Respiratory 18 16 Rate Blood Pressure 158/98 128/89 Blood Pressure 193/115 [Left] O2 Sat by Pulse 98 97 Oximetry 08/13/18 08/13/18 08/13/18 08:05 08:10 08:15 Temperature Pulse Rate 75 74 74 Respiratory 17 16 18 Rate Blood Pressure 107/89 120/86 122/82 Blood Pressure [Left] O2 Sat by Pulse 98 99 98 Oximetry 08/13/18 08/13/18 08/13/18 08:20 08:30 08:45 Temperature Pulse Rate 76 77 75 Respiratory 20 19 20 Rate Blood Pressure 126/83 129/87 133/89 Blood Pressure [Left] O2 Sat by Pulse 97 98 98 Oximetry 08/13/18 08/13/18 08/13/18 09:00 09:15 09:51 Temperature 98.2 F Pulse Rate 76 77 81 Respiratory 20 20 18 Rate Blood Pressure 130/85 136/89 151/104 Blood Pressure [Left] O2 Sat by Pulse 100 100 100 Oximetry 08/13/18 08/13/18 08/13/18 10:25 11:28 14:24 Temperature 98.7 F Pulse Rate 81 89 87 Respiratory 16 Rate Blood Pressure 151/104 150/87 130/84 Blood Pressure [Left] O2 Sat by Pulse 99 Oximetry - Labs CBC & Chem 7: 08/12/18 06:54 08/13/18 13:08 Labs: Abnormal lab results 08/13/18 08/13/18 08/13/18 Range/Units 13:08 13:08 14:23 Potassium 3.5 L (3.6-5.0) mmol/L BUN 24 H (9-20) mg/dL Creatinine 3.5 H (0.8-1.5) mg/dL Calcium 8.3 L (8.4-10.2) mg/dL PTH Intact 179.0 H (15-65) pg/mL Urine Creatinine 134.6 H (0.1-20.0) mg/dL Urine Total Protein 140 H (5-11.8) mg/dL
[2018-08-13] MEDS ORDERED: K-DUR PO ONE (19:17)
[2018-08-14] MEDS: LOPRESSOR PO SCH ×2 (05:24→17:21)
[2018-08-14 05:57] LABS: Calcium 8.6 mg/dL (8.4-10.2)
[2018-08-14] MEDS: APRESOLINE PO SCH ×2 (08:15→17:20)
--- NOTE | 2018-08-14 08:27 | Progress Note ---
Assessment and Plan 1. Acute kidney injury: IQRA superimposed on CKD. Suspect Vasomotor / hemodynamic IQRA. Monitor renal function. Some progressive CKD due to poorly controlled HTN. Antibodies to r/o any GN. Informed RN to restart IV fluids. 2. Chronic kidney disease: Hypertensive Nephropathy. Proteinuria noted. 3. Electrolytes: Hypokalemia, K level is better. 4. Hematuria: Followed by Urologist. 5. Uncontrolled HTN: Improving. Subjective Date of service: 08/14/18 Principal diagnosis: hematuria Interval history: Patient is doing ok. Objective - Vital Signs Vital signs: Vital Signs - 12hr 08/13/18 08/13/18 08/14/18 21:17 23:11 05:24 Temperature 98.6 F Pulse Rate 87 79 84 Respiratory 18 Rate Blood Pressure 133/89 113/69 119/77 O2 Sat by Pulse 98 Oximetry 08/14/18 05:33 Temperature 97.9 F Pulse Rate 82 Respiratory 18 Rate Blood Pressure 119/76 O2 Sat by Pulse 99 Oximetry - General Appearance General appearance: well-developed, well-nourished, appears stated age, other ( no distress) EENT: ATNC, PERRL, mucous membranes moist, hearing intact, vision intact Neck: supple Respiratory: Present: Clear to Ascultation Cardiology: regular, S1S2, no murmurs Gastrointestinal: normoactive bowel sounds, no tenderness, no distended Integumentary: no rash, warm and dry Neurologic: no focal deficit, no asterixis, alert and oriented x3 Musculoskeletal: other (no edema) Psychiatric: cooperative - Lab 08/12/18 06:54 08/14/18 05:12 Most recent lab results Calcium 8.6 mg/dL (8.4-10.2) 08/14/18 05:12 Urine Creatinine 134.6 mg/dL (0.1-20.0) H 08/13/18 14:23 Urine Sodium 105 mmol/L 08/13/18 14:23 Urine Total Protein 140 mg/dL (5-11.8) H 08/13/18 14:23
--- NOTE | 2018-08-14 09:01 | Progress Note ---
Assessment and Plan Hematuria awaits cystoscopy procedure Hypertension admits to poor medical compliance and outpatient follow-up now controlled with Procardia XL and Metoprolol Hx of seizure disorder Chronic kidney disease Preoperative cardiac assessment ECG is normal sinus rhythm, left ventricular hypertrophy with repolarization abnormalities of LVH, consistent with his chronic hypertension. Continue optimal blood pressure management. Okay to proceed with cystoscopy, low cardiac risk. Subjective Date of service: 08/14/18 Principal diagnosis: hematuria Interval history: Patient has no cardiac complaints. Blood pressure has improved. Awaits cystoscopy procedure. Objective Vital Signs Temp Pulse Resp BP Pulse Ox 08/14/18 05:33 97.9 F 82 18 119/76 99 08/14/18 05:24 84 119/77 08/13/18 23:11 98.6 F 79 18 113/69 98 08/13/18 21:17 87 133/89 08/13/18 16:31 98.3 F 82 15 140/94 100 08/13/18 14:24 87 130/84 08/13/18 11:28 98.7 F 89 16 150/87 99 08/13/18 10:25 81 151/104 08/13/18 09:51 98.2 F 81 18 151/104 100 08/13/18 09:15 77 20 136/89 100 08/13/18 09:00 76 20 130/85 100 - Physical Examination General: No Apparent Distress HEENT: Positive: PERRL Cardiac: Positive: Reg Rate and Rhythm Neuro: Positive: Grossly Intact Extremities: Absent: edema - Labs and Meds Comprehensive Metabolic Panel 08/13/18 08/14/18 Range/Units 13:08 05:12 Sodium 141 142 (137-145) mmol/L Potassium 3.5 L 4.1 (3.6-5.0) mmol/L Chloride 106.1 110.5 H (98-107) mmol/L Carbon Dioxide 25 22 (22-30) mmol/L BUN 24 H 30 H (9-20) mg/dL Creatinine 3.5 H 3.9 H (0.8-1.5) mg/dL Glucose 90 91 (75-100) mg/dL Calcium 8.3 L 8.6 (8.4-10.2) mg/dL Repolarization changes or abnormalities: repolarization abn secondary to ventricular hypertrophy
[2018-08-14] MEDS: NACL 0.45% 1000 ML 1,000 ML IV SCH (12:54)
[2018-08-14] MEDS: SODIUM CHLORIDE FLUSH SYRINGE 10 ML IV SCH (12:57)
[2018-08-14] MEDS ORDERED: ANCEF/STERILE WATER 2 GM/20 ML IV NR (16:10)
[2018-08-14] MEDS: NACL 0.9% 1000 ML 1,000 ML IV SCH ×2 (16:15→23:45)
[2018-08-14] MEDS: VERSED IV PRN ×2 (16:17→17:21)
--- NOTE | 2018-08-14 16:37 | Progress Note ---
Assessment and Plan - Patient Problems (1) Hematuria Current Visit: Yes Status: Acute Qualifiers: Hematuria type: gross Qualified Code(s): R31.0 - Gross hematuria Plan to address problem: R/o Bladder carcinoma Urology consult For Cystoscopt (2) Hypokalemia Current Visit: Yes Status: Acute Plan to address problem: Supplemented (3) Hypertensive urgency Current Visit: Yes Status: Acute Plan to address problem: Noncompliance IV Hydralazine prn (4) Seizure disorder Current Visit: Yes Status: Chronic Plan to address problem: Cont Keppra (5) DVT prophylaxis Current Visit: Yes Status: Acute Plan to address problem: Only scd's Subjective Date of service: 08/14/18 Principal diagnosis: hematuria Interval history: No Hematuria Objective - Constitutional Vitals: Vital Signs - 12hr 08/14/18 08/14/18 08/14/18 05:24 05:33 11:40 Temperature 97.9 F 98.7 F Pulse Rate 84 82 80 Respiratory 18 20 Rate Blood Pressure 119/77 119/76 131/88 O2 Sat by Pulse 99 98 Oximetry General appearance: Present: no acute distress, well-nourished - EENT Eyes: PERRL, EOM intact ENT: hearing intact, clear oral mucosa Ears: bilateral: normal - Neck Neck: supple, normal ROM - Respiratory Respiratory effort: normal Respiratory: bilateral: CTA - Breasts Breasts: normal - Cardiovascular Rhythm: regular Heart Sounds: Present: S1 & S2. Absent: gallop, rub Extremities: pulses intact, No edema, normal color, Full ROM - Gastrointestinal General gastrointestinal: Present: soft, non-tender, non-distended, normal bowel sounds - Genitourinary Male genitourinary: normal - Integumentary Integumentary: clear, warm, dry - Musculoskeletal Musculoskeletal: 1, strength equal bilaterally - Neurologic Neurologic: moves all extremities - Psychiatric Psychiatric: memory intact, appropriate mood/affect, intact judgment & insight - Labs CBC & Chem 7: 08/12/18 06:54 08/14/18 05:12 Labs: Abnormal lab results 08/14/18 Range/Units 05:12 Chloride 110.5 H (98-107) mmol/L BUN 30 H (9-20) mg/dL Creatinine 3.9 H (0.8-1.5) mg/dL
[2018-08-14] MEDS ORDERED: WATER FOR IRRIG STERILE IR ONE (18:44)
[2018-08-14] MEDS ORDERED: OMNIPAQUE (240mg) IV ONE (18:45)
[2018-08-14] MEDS ORDERED: XYLOCAINE MPF 2% ONE (18:50)
[2018-08-14] MEDS ORDERED: SUBLIMAZE ONE (18:50)
[2018-08-14] MEDS ORDERED: DIPRIVAN 10 MG/ML IV ONE (18:50)
[2018-08-14] MEDS ORDERED: ZOFRAN ONE (19:22)
--- NOTE | 2018-08-14 19:29 | Post Operative Note ---
Date of procedure: 08/14/18 Pre-op diagnosis: gross hematuria Post-op diagnosis: other (BPH, prostate inflammation) Procedure: cysto, rpg Anesthesia: GETA Surgeon: HANNAH FAROOQ Estimated blood loss: none Pathology: none Condition: stable Disposition: PACU (bactrim & cipro on chart, ok to dc home, appt 3-4 wks)
[2018-08-14] MEDS ORDERED: NORMODYNE IV PRN (20:24)
[2018-08-14] MEDS ORDERED: APRESOLINE IV PRN (20:50)
--- NOTE | 2018-08-14 23:31 | Operative Report ---
PREOPERATIVE DIAGNOSIS: Gross hematuria. POSTOPERATIVE DIAGNOSES: Gross hematuria, benign prostatic hypertrophy, and trigonitis. PROCEDURE PERFORMED: Cystoscopy, bilateral retrograde pyelogram. SURGEON: Ronaldo Hoyos MD ANESTHESIA: General. ESTIMATED BLOOD LOSS: Minimal. FLUIDS: Crystalloid. COMPLICATIONS: No complications. INDICATIONS: This patient is a 47-year-old gentleman, who presented to the Emergency Room with gross hematuria. The patient was admitted to the hospital. He also had uncontrolled hypertension. CT of abdomen and pelvis was unremarkable except for some mild BPH. The patient was examined and elected to undergo cystoscopy and consent was obtained. In the preop area, he was noted to have some labile blood pressure. The patient was given a little sedation and his pressure actually went down. He was taken to the cystoscopy suite. The monitor was connected and he was having some ectopy. On discussion with anesthesia, they felt prudent to cancel the procedure and undergo cardiac evaluation (Dr. Randolph). Case was canceled. The patient's was informed as well. The patient was seen by Dr. Rosales and felt that this was chronic in nature and he was cleared to proceed. He was brought to the operating room today. DESCRIPTION OF PROCEDURE: The patient was taken to the operative suite and placed in a supine position. After adequate general anesthesia, placed in a dorsal lithotomy position, prepped and draped in a sterile fashion. Pancystourethroscopy was performed with a 22-Mosotho Storz cystoscope. No urethral abnormalities. His prostate did display some mild trilobar obstruction with erythema suggestive of possible infection or inflammation. Bladder, no tumors or stones were noted. Both ureteral orifices in normal position. Bilateral retrograde pyelograms were obtained with an 8 Mosotho Pettis catheter and 8 mL of contrast. No filling defects or obstruction. Again, the bladder was clear. His bladder was drained. Rectal exam was benign. He was extubated and taken to recovery room in stable condition. JOB# [id number] ITA/MARINA
[2018-08-15] MEDS: LOPRESSOR PO SCH ×4 (00:09→21:12)
[2018-08-15] MEDS: APRESOLINE PO SCH ×4 (00:09→21:13)
[2018-08-15] MEDS: KEPPRA PO SCH ×3 (00:10→22:30)
[2018-08-15] MEDS: SODIUM CHLORIDE FLUSH SYRINGE 10 ML IV SCH ×3 (00:12→21:13)
[2018-08-15 05:20] LABS: Basophils # (Auto) 0.1 K/mm3 (0.0-0.1); Basophils % (Auto) 1.5 % (0.0-1.8); Eosinophils # (Auto) 0.4 K/mm3 (0.0-0.4); Eosinophils % (Auto) 5.8 % (0.0-4.3); Hematocrit 34.6 % (35.5-45.6); Hemoglobin 11.5 gm/dl (11.8-15.2); Lymphocytes # (Auto) 1.2 K/mm3 (1.2-5.4); Lymphocytes % (Auto) 16.7 % (13.4-35.0); Mean Corpuscular HGB Conc 33 % (32-34); Mean Corpuscular Hemoglobin 33 pg (28-32); Mean Corpuscular Volume 99 fl (84-94); Monocytes # (Auto) 0.5 K/mm3 (0.0-0.8); Monocytes % (Auto) 6.6 % (0.0-7.3); Platelet Count 204 K/mm3 (140-440); Red Cell Distribution Width 14.1 % (13.2-15.2)
[2018-08-15 05:34] LABS: Calcium 8.2 mg/dL (8.4-10.2)
[2018-08-15] MEDS: NACL 0.45% 1000 ML 1,000 ML IV SCH ×2 (06:33→14:05)
--- NOTE | 2018-08-15 08:02 | Fluoroscopy Report ---
FLUOROSCOPY RETROGRADE UROGRAPHY: HISTORY: Hematuria. FINDINGS: Fluoroscopy was provided by radiology during retrograde urography by the urologist. 6 fluoroscopic images were captured. There is adequate filling of the ureters and intrarenal collecting systems with no filling defects or anatomic abnormalities identified. Please correlate with the procedural report if needed. IMPRESSION: Retrograde pyelograms within normal limits.
--- NOTE | 2018-08-15 08:10 | Progress Note ---
Assessment and Plan 1. Acute kidney injury: IQRA superimposed on CKD. BUN and creatinine level are flat since admission. Likely progressive CKD due to poorly controlled HTN. Antibodies to r/o any GN. 2. Chronic kidney disease: Hypertensive Nephropathy. Proteinuria noted. 3. Electrolytes: Hypokalemia, K level is better. 4. Hematuria: Followed by Urologist. 5. Uncontrolled HTN: Improving. F/u in 2 weeks. Subjective Date of service: 08/15/18 Principal diagnosis: hematuria Interval history: Patient is doing ok. Objective - Vital Signs Vital signs: Vital Signs - 12hr 08/14/18 08/14/18 08/14/18 20:15 20:30 20:35 Temperature Pulse Rate 82 79 77 Respiratory 19 18 Rate Blood Pressure 154/107 155/104 161/110 Blood Pressure [Left] O2 Sat by Pulse 98 99 Oximetry 08/14/18 08/14/18 08/14/18 20:45 21:00 21:03 Temperature Pulse Rate 80 77 78 Respiratory 20 17 Rate Blood Pressure 170/113 155/105 155/105 Blood Pressure [Left] O2 Sat by Pulse 98 99 Oximetry 08/14/18 08/14/18 08/14/18 21:15 21:30 21:45 Temperature Pulse Rate 78 78 80 Respiratory 15 15 17 Rate Blood Pressure 144/96 152/93 146/92 Blood Pressure [Left] O2 Sat by Pulse 99 98 99 Oximetry 08/14/18 08/14/18 08/14/18 22:15 23:24 23:57 Temperature 97.1 F L 97.6 F Pulse Rate 82 81 82 Respiratory 18 17 Rate Blood Pressure 146/94 Blood Pressure 153/99 [Left] O2 Sat by Pulse 98 98 97 Oximetry 08/15/18 08/15/18 00:09 06:28 Temperature Pulse Rate 82 Respiratory Rate Blood Pressure 146/94 143/72 Blood Pressure [Left] O2 Sat by Pulse Oximetry - General Appearance General appearance: well-developed, well-nourished, appears stated age, other ( not in distress) EENT: ATNC, PERRL, mucous membranes moist, hearing intact, vision intact Neck: supple Respiratory: Present: Clear to Ascultation Cardiology: regular, S1S2, no murmurs Gastrointestinal: normoactive bowel sounds Integumentary: no rash, warm and dry Neurologic: no focal deficit, no asterixis, alert and oriented x3 Musculoskeletal: other (no edema) Psychiatric: cooperative - Lab 08/15/18 04:40 08/15/18 04:40 Most recent lab results Calcium 8.2 mg/dL (8.4-10.2) L 08/15/18 04:40 Phosphorus 4.40 mg/dL (2.5-4.5) 08/15/18 04:40 Magnesium 2.00 mg/dL (1.7-2.3) 08/15/18 04:40 Urine Creatinine 134.6 mg/dL (0.1-20.0) H 08/13/18 14:23 Urine Sodium 105 mmol/L 08/13/18 14:23 Urine Total Protein 140 mg/dL (5-11.8) H 08/13/18 14:23
--- NOTE | 2018-08-15 09:12 | Progress Note ---
Assessment and Plan Hematuria s/p cystoscopy procedure Hypertension admits to poor medical compliance and outpatient follow-up now controlled with Hydralazine, Procardia XL and Metoprolol Hx of seizure disorder Chronic kidney disease Preoperative cardiac assessment ECG is normal sinus rhythm, left ventricular hypertrophy with repolarization abnormalities of LVH, consistent with his chronic hypertension. Continue optimal blood pressure management. Otherwise, conservative cardiac management. Subjective Date of service: 08/15/18 Principal diagnosis: hematuria Interval history: Patient has no cardiac complaints. Blood pressure remains stable. Objective Vital Signs Temp Pulse Resp BP BP Pulse Ox 08/15/18 08:11 98.8 F 82 18 136/98 98 08/15/18 06:28 143/72 08/15/18 00:09 82 146/94 08/14/18 23:57 97.6 F 82 17 146/94 100 08/14/18 23:24 97.1 F L 81 18 153/99 98 08/14/18 22:15 82 98 08/14/18 21:45 80 17 146/92 99 08/14/18 21:30 78 15 152/93 98 08/14/18 21:15 78 15 144/96 99 08/14/18 21:03 78 155/105 08/14/18 21:00 77 17 155/105 99 08/14/18 20:45 80 20 170/113 98 08/14/18 20:35 77 161/110 08/14/18 20:30 79 18 155/104 99 08/14/18 20:15 82 19 154/107 98 08/14/18 20:00 77 21 136/94 98 08/14/18 19:45 73 17 115/81 97 08/14/18 19:40 73 15 108/76 99 08/14/18 19:35 74 16 113/74 98 08/14/18 19:30 98.2 F 74 15 121/80 99 08/14/18 18:00 162/98 08/14/18 17:35 164/100 08/14/18 17:21 90 164/100 08/14/18 17:20 90 164/100 08/14/18 17:00 164/98 08/14/18 16:22 160/100 08/14/18 15:35 98.7 F 90 20 170/100 99 08/14/18 11:40 98.7 F 80 20 131/88 98 - Physical Examination General: No Apparent Distress HEENT: Positive: PERRL Neck: Positive: trachea midline Cardiac: Positive: Reg Rate and Rhythm Lungs: Positive: Decreased Breath Sounds Neuro: Positive: Grossly Intact Extremities: Absent: edema - Labs and Meds CBC 08/15/18 Range/Units 04:40 WBC 7.4 (4.5-11.0) K/mm3 RBC 3.50 L (3.65-5.03) M/mm3 Hgb 11.5 L (11.8-15.2) gm/dl Hct 34.6 L D (35.5-45.6) % Plt Count 204 (140-440) K/mm3 Lymph # 1.2 (1.2-5.4) K/mm3 [place] # 0.5 (0.0-0.8) K/mm3 Eos # 0.4 (0.0-0.4) K/mm3 Baso # 0.1 (0.0-0.1) K/mm3 Comprehensive Metabolic Panel 08/15/18 Range/Units 04:40 Sodium 140 (137-145) mmol/L Potassium 4.0 (3.6-5.0) mmol/L Chloride 107.2 H (98-107) mmol/L Carbon Dioxide 22 (22-30) mmol/L BUN 33 H (9-20) mg/dL Creatinine 3.8 H (0.8-1.5) mg/dL Glucose 96 (75-100) mg/dL Calcium 8.2 L (8.4-10.2) mg/dL Repolarization changes or abnormalities: repolarization abn secondary to ventricular hypertrophy
[2018-08-15] MEDS: PROCARDIA XL PO SCH (10:13)
--- NOTE | 2018-08-15 16:23 | Discharge Summary ---
Providers - Providers Date of Admission: 08/11/18 21:23 Attending physician: IRIS MIRANDA MD 08/11/18 21:23 Consult to Physician [CONS] Routine Comment: Consulting Provider: HANNAH FAROOQ Physician Instructions: Reason For Exam: Hematuria 08/13/18 10:49 Consult to Physician [CONS] Routine Comment: Consulting Provider: WU REED Physician Instructions: Reason For Exam: Renal failure 08/13/18 10:51 Consult to Cardiology [CONS] Stat Consulting Provider: DOMINIC VELEZ Reason For Exam: ST segment depression, HTN Primary care physician: SHOP FIRER/FIREMAN Hospitalization Condition: Fair Hospital course: - Patient Problems (1) Hematuria Current Visit: Yes Status: Acute Qualifiers: Hematuria type: gross Qualified Code(s): R31.0 - Gross hematuria Plan to address problem: R/o Bladder carcinoma Urology consult For Cystoscopt (2) Hypokalemia Current Visit: Yes Status: Acute Plan to address problem: Supplemented (3) Hypertensive urgency Current Visit: Yes Status: Acute Plan to address problem: Noncompliance IV Hydralazine prn (4) Seizure disorder Current Visit: Yes Status: Chronic Plan to address problem: Cont Keppra (5) DVT prophylaxis Current Visit: Yes Status: Acute Plan to address problem: Only scd's Subjective Date of service: 08/14/18 Principal diagnosis: hematuria Interval history: No Hematuria Disposition: DC-01 TO HOME OR SELFCARE Time spent for discharge: 33 minutes Exam - Constitutional Vitals: Temp Pulse Resp BP Pulse Ox 98.8 F 74 18 113/78 99 08/15/18 15:32 08/15/18 15:32 08/15/18 15:32 08/15/18 15:32 08/15/18 15:32 Plan Follow up with: PRIMARY CARE, [Primary Care Provider] - 3-5 Days Forms: Work/School Release Form Prescriptions: NIFEdipine XL [Procardia Xl] 60 mg PO QDAY #30 tablet oxyCODONE /ACETAMINOPHEN [Percocet 5/325 mg] 1 tab PO Q6H PRN #30 tablet PRN Reason: Pain, Moderate (4-6)
[2018-08-16 05:11] LABS: Calcium 8.2 mg/dL (8.4-10.2)
[2018-08-16] MEDS: LOPRESSOR PO SCH (05:25)
[2018-08-16] MEDS: KEPPRA PO SCH ×2 (05:26→09:07)
[2018-08-16 07:46] VITALS: BP 144/94
--- NOTE | 2018-08-16 08:27 | Progress Note ---
Assessment and Plan 1. Acute kidney injury: IQRA superimposed on CKD. BUN and creatinine level are mostly flat since admission. Likely progressive CKD due to poorly controlled HTN. Antibodies to r/o any GN. 2. Chronic kidney disease: Hypertensive Nephropathy. Proteinuria noted. 3. Electrolytes: Hypokalemia, K level is better. 4. Hematuria: Followed by Urologist. 5. Uncontrolled HTN: Improving. F/u in 2 weeks. Subjective Date of service: 08/16/18 Principal diagnosis: hematuria Interval history: Patient is doing ok. Objective - Vital Signs Vital signs: Vital Signs - 12hr 08/16/18 08/16/18 08/16/18 00:59 01:00 01:03 Temperature 98.8 F Pulse Rate 74 75 Respiratory 17 Rate Blood Pressure 133/82 O2 Sat by Pulse 99 99 Oximetry 08/16/18 08/16/18 08/16/18 04:57 04:58 07:08 Temperature 98.7 F 98.8 F Pulse Rate 79 78 75 Respiratory 100 H 18 Rate Blood Pressure 132/87 144/94 O2 Sat by Pulse 100 100 97 Oximetry - General Appearance General appearance: well-developed, well-nourished, appears stated age, other ( not in distress) EENT: ATNC, PERRL, mucous membranes moist, hearing intact, vision intact Neck: supple Respiratory: Present: Clear to Ascultation Cardiology: regular, S1S2, no murmurs Gastrointestinal: normoactive bowel sounds, no tenderness, no distended Integumentary: no rash, warm and dry Neurologic: no focal deficit, no asterixis, alert and oriented x3 Musculoskeletal: other (no edema) - Lab 08/15/18 04:40 08/16/18 04:19 Most recent lab results Calcium 8.2 mg/dL (8.4-10.2) L 08/16/18 04:19 Phosphorus 4.40 mg/dL (2.5-4.5) 08/15/18 04:40 Magnesium 2.00 mg/dL (1.7-2.3) 08/15/18 04:40 Urine Creatinine 134.6 mg/dL (0.1-20.0) H 08/13/18 14:23 Urine Sodium 105 mmol/L 08/13/18 14:23 Urine Total Protein 140 mg/dL (5-11.8) H 08/13/18 14:23
[2018-08-16] MEDS: PROCARDIA XL PO SCH (09:07)
[2018-08-16] MEDS: APRESOLINE PO SCH (09:07)
[2018-08-16] MEDS: SODIUM CHLORIDE FLUSH SYRINGE 10 ML IV SCH (09:09)
--- NOTE | 2018-08-16 11:09 | Progress Note ---
Assessment and Plan Hematuria s/p cystoscopy procedure Hypertension admits to poor medical compliance and outpatient follow-up now controlled with Hydralazine, Procardia XL and Metoprolol Hx of seizure disorder Chronic kidney disease Preoperative cardiac assessment ECG is normal sinus rhythm, left ventricular hypertrophy with repolarization abnormalities of LVH, consistent with his chronic hypertension. Okay for cardiac discharge on current medical management. Patient advised to follow up in 5-7 days for LV function assessment with echocardiogram with additional further cardiac workup as indicated. Subjective Date of service: 08/16/18 Principal diagnosis: hematuria Interval history: Patient has no cardiac complaints. For planned discharge home today. Blood pressure remains stable. Objective Vital Signs Temp Pulse Resp BP Pulse Ox 08/16/18 07:08 98.8 F 75 18 144/94 97 08/16/18 04:58 78 100 08/16/18 04:57 98.7 F 79 100 H 132/87 100 08/16/18 01:03 98.8 F 08/16/18 01:00 75 99 08/16/18 00:59 74 17 133/82 99 08/15/18 20:27 97.9 F 80 17 146/96 100 08/15/18 15:32 98.8 F 74 18 113/78 99 08/15/18 14:07 79 142/97 08/15/18 14:06 79 142/97 08/15/18 11:45 98.7 F 79 18 142/97 98 - Physical Examination General: No Apparent Distress HEENT: Positive: PERRL Neck: Positive: trachea midline Cardiac: Positive: Reg Rate and Rhythm Lungs: Positive: Decreased Breath Sounds Neuro: Positive: Grossly Intact Extremities: Absent: edema - Labs and Meds Comprehensive Metabolic Panel 08/16/18 Range/Units 04:19 Sodium 140 (137-145) mmol/L Potassium 4.3 (3.6-5.0) mmol/L Chloride 109.2 H (98-107) mmol/L Carbon Dioxide 21 L (22-30) mmol/L BUN 31 H (9-20) mg/dL Creatinine 4.1 H (0.8-1.5) mg/dL Glucose 92 (75-100) mg/dL Calcium 8.2 L (8.4-10.2) mg/dL Repolarization changes or abnormalities: repolarization abn secondary to ventricular hypertrophy
--- NOTE | 2018-08-16 12:45 | Progress Note ---
Hospitalist Physical - Constitutional Vitals: Temp Pulse Resp BP Pulse Ox 98.8 F 75 18 144/94 97 08/16/18 07:08 08/16/18 07:08 08/16/18 07:08 08/16/18 07:08 08/16/18 07:08 General appearance: Present: no acute distress, well-nourished Results - Labs CBC & Chem 7: 08/15/18 04:40 08/16/18 04:19 Labs: Laboratory Last Values WBC 7.4 K/mm3 (4.5-11.0) 08/15/18 04:40 RBC 3.50 M/mm3 (3.65-5.03) L 08/15/18 04:40 Hgb 11.5 gm/dl (11.8-15.2) L 08/15/18 04:40 Hct 34.6 % (35.5-45.6) L D 08/15/18 04:40 MCV 99 fl (84-94) H 08/15/18 04:40 MCH 33 pg (28-32) H 08/15/18 04:40 MCHC 33 % (32-34) 08/15/18 04:40 RDW 14.1 % (13.2-15.2) 08/15/18 04:40 Plt Count 204 K/mm3 (140-440) 08/15/18 04:40 Lymph % (Auto) 16.7 % (13.4-35.0) 08/15/18 04:40 [place] % (Auto) 6.6 % (0.0-7.3) 08/15/18 04:40 Eos % (Auto) 5.8 % (0.0-4.3) H 08/15/18 04:40 Baso % (Auto) 1.5 % (0.0-1.8) 08/15/18 04:40 Lymph # 1.2 K/mm3 (1.2-5.4) 08/15/18 04:40 [place] # 0.5 K/mm3 (0.0-0.8) 08/15/18 04:40 Eos # 0.4 K/mm3 (0.0-0.4) 08/15/18 04:40 Baso # 0.1 K/mm3 (0.0-0.1) 08/15/18 04:40 Seg Neutrophils % 69.4 % (40.0-70.0) 08/15/18 04:40 Seg Neutrophils # 5.1 K/mm3 (1.8-7.7) 08/15/18 04:40 PT 14.0 Sec. (12.2-14.9) 08/11/18 16:34 INR 1.03 (0.87-1.13) 08/11/18 16:34 APTT 25.8 Sec. (24.2-36.6) 08/11/18 16:34 Sodium 140 mmol/L (137-145) 08/16/18 04:19 Potassium 4.3 mmol/L (3.6-5.0) 08/16/18 04:19 Chloride 109.2 mmol/L (98-107) H 08/16/18 04:19 Carbon Dioxide 21 mmol/L (22-30) L 08/16/18 04:19 Anion Gap 14 mmol/L 08/16/18 04:19 BUN 31 mg/dL (9-20) H 08/16/18 04:19 Creatinine 4.1 mg/dL (0.8-1.5) H 08/16/18 04:19 Estimated GFR 19 ml/min 08/16/18 04:19 BUN/Creatinine Ratio 8 % 08/16/18 04:19 Glucose 92 mg/dL (75-100) 08/16/18 04:19 Hemoglobin A1c 5.5 % (4-6) 08/11/18 21:43 Calcium 8.2 mg/dL (8.4-10.2) L 08/16/18 04:19 Phosphorus 4.40 mg/dL (2.5-4.5) 08/15/18 04:40 Magnesium 2.00 mg/dL (1.7-2.3) 08/15/18 04:40 Total Bilirubin 0.40 mg/dL (0.1-1.2) 08/12/18 06:54 AST 25 units/L (5-40) 08/12/18 06:54 ALT 26 units/L (7-56) 08/12/18 06:54 Alkaline Phosphatase 61 units/L (35-129) 08/12/18 06:54 Total Creatine Kinase 114 units/L (55-170) 08/13/18 13:08 Total Protein 6.8 g/dL (6.3-8.2) 08/12/18 06:54 Albumin 3.7 g/dL (3.9-5) L 08/12/18 06:54 Albumin/Globulin Ratio 1.2 % 08/12/18 06:54 PTH Intact 179.0 pg/mL (15-65) H 08/13/18 13:08 Urine Color Yellow (Yellow) 08/11/18 Unknown Urine Turbidity Slightly-cloudy (Clear) 08/11/18 Unknown Urine pH 5.0 (5.0-7.0) 08/11/18 Unknown Ur Specific [place] 1.018 (1.003-1.030) 08/11/18 Unknown Urine Protein >500 mg/dL (Negative) 08/11/18 Unknown Urine Glucose (UA) Neg mg/dL (Negative) 08/11/18 Unknown Urine Ketones Neg mg/dL (Negative) 08/11/18 Unknown Urine Blood Lg (Negative) 08/11/18 Unknown Urine Nitrite Neg (Negative) 08/11/18 Unknown Urine Bilirubin Neg (Negative) 08/11/18 Unknown Urine Urobilinogen < 2.0 mg/dL (<2.0) 08/11/18 Unknown Ur Leukocyte Esterase Neg (Negative) 08/11/18 Unknown Urine WBC (Auto) 5.0 /HPF (0.0-6.0) 08/11/18 Unknown Urine RBC (Auto) > 182.0 /HPF (0.0-6.0) 08/11/18 Unknown U Epithel Cells (Auto) 2.0 /HPF (0-13.0) 08/11/18 Unknown Urine Mucus Few /HPF 08/11/18 Unknown Urine Creatinine 134.6 mg/dL (0.1-20.0) H 08/13/18 14:23 Protein/Creatinin Ratio 1.04 08/13/18 14:23 Urine Sodium 105 mmol/L 08/13/18 14:23 Urine Total Protein 140 mg/dL (5-11.8) H 08/13/18 14:23 Complement C3 120 mg/dL (82-185) 08/14/18 05:12 Complement C4 34 mg/dL (15-53) 08/14/18 05:12
[2018-08-16 21:37] LABS: Myeloperoxidase Antibody <1.0 AI (<1.0)
[2018-08-17 12:36] LABS: ANA Screen, IFA Negative (Negative)
== END 2018-08-16 10:34 | disposition home or self-care (01) | DRG 683 ==
LOC: ED 15:09 → 3A 21:23 → 3B-SURG 08-14 22:40
PROVIDERS: ADMIT Internal Medicine; ATTEND Internal Medicine
PROC: 0TJB8ZZ Inspection of Bladder, Via Natural or Artificial Opening Endoscopic (ICD-10-PCS; principal; 2018-08-14)
PROC: BT141ZZ Fluoroscopy of Kidneys, Ureters and Bladder using Low Osmolar Contrast (ICD-10-PCS; 2018-08-14)
DX: N17.9 Acute kidney failure, unspecified (principal); J90 Pleural effusion, not elsewhere classified; R31.0 Gross hematuria; E87.6 Hypokalemia; I16.0 Hypertensive urgency; G40.909 Epilepsy, unspecified, not intractable, without status epilepticus; N18.3 Chronic kidney disease, stage 3 (moderate); N30.31 Trigonitis with hematuria; N40.0 Benign prostatic hyperplasia without lower urinary tract symptoms; I13.10 Hypertensive heart and chronic kidney disease without heart failure, with stage 1 through stage 4 chronic kidney disease, or unspecified chronic kidney disease; Z79.899 Other long term (current) drug therapy
CPT/HCPCS: 36415; 74176; 74420; 80048; 80053; 81001; 82550; 82570; 83036; 83735; 83970; 84100; 84156; 84300; 85025; 85610; 85730; 86021; 86038; 86160; 93005; 93010; A4217; C1758; J0360; J0690; J2250; J2405; J2704; J3010; J3480; J7030; J7042; Q9967

== ENCOUNTER 2019-12-24 13:20 | Inpatient (IN) | payer OTHER ==
--- NOTE | 2019-12-24 14:16 | Emergency Department Report ---
Blank Doc - Documentation Documentation: 49-year-old male that presents with abdominal pain and n/v. This initial assessment/diagnostic orders/clinical plan/treatment(s) is/are subject to change based on patient's health status, clinical progression and re- assessment by fellow clinical providers in the ED. Further treatment and workup at subsequent clinical providers discretion. Patient/guardians urged not to elope from the ED as their condition may be serious if not clinically assessed and managed. Initial orders include: 1- Patient sent to [facility] for further evaluation and treatment 2- labs 3- UA
[2019-12-24 14:41] LABS: Basophils % (Auto) 0.3 % (0.0-1.8); Eosinophils % (Auto) 0.3 % (0.0-4.3); Hematocrit 49.5 % (35.5-45.6); Hemoglobin 16.9 gm/dl (11.8-15.2); Lymphocytes # (Auto) 1.2 K/mm3 (1.2-5.4); Lymphocytes % (Auto) 6.8 % (13.4-35.0); Mean Corpuscular HGB Conc 34 % (32-34); Mean Corpuscular Volume 94 fl (84-94); Monocytes # (Auto) 0.9 K/mm3 (0.0-0.8); Monocytes % (Auto) 5.4 % (0.0-7.3); Platelet Count 141 K/mm3 (140-440); Red Blood Count 5.28 M/mm3 (3.65-5.03); Red Cell Distribution Width 13.3 % (13.2-15.2)
[2019-12-24 15:05] LABS: Calcium 8.5 mg/dL (8.4-10.2)
[2019-12-24] MEDS ORDERED: ONDANSETRON 4 MG/2 ML INJ IV ONE (15:22)
[2019-12-24] MEDS ORDERED: SODIUM CHLORIDE 0.9% 1000 ML 1,000 ML IV ONE (15:22)
[2019-12-24] MEDS ORDERED: MORPHINE 4 MG/1 ML INJ IV ONE (15:23)
[2019-12-24] MEDS ORDERED: hydrALAZINE 20 MG/1 ML INJ IV ONE ×3 (15:24→16:26)
--- NOTE | 2019-12-24 15:25 | Emergency Department Report ---
ED Abdominal Pain HPI - General Chief Complaint: Abdominal Pain Stated Complaint: ABD PAIN/HBP Time Seen by Provider: 12/24/19 14:15 Source: patient Mode of arrival: Ambulatory Limitations: No Limitations - History of Present Illness Initial Comments: 49 year old male with history of renal insufficiency, hypertension, and hyperlipidemia presents to the ER today complaining of upper abdominal pain, nausea and vomiting for the past 2 days. Patient states that his abdominal pain has been constant, but nonradiating. He states that he has been vomiting intermittently since Sunday. He states that he initially thought his symptoms was related to him being constipated, and so on Sunday he took a laxative but did not have much stool, but today he had 3-4 episodes of watery stools. He reports associated generalized weakness and diaphoresis. He states that he is never had this pain before. He reports no associated chest pain, shortness of breath, URI symptoms or cough. He reports no melana, hematoschezia or hematemesis. He states that he drinks but only occasionally. He denies any history of peptic ulcer disease/gastritis. Patient blood pressure noted to be extremely elevated at triage. Patient admits that he has not been able to take his blood pressure medication due to the fact that he has been vomiting since Sunday. MD Complaint: abdominal pain -: days(s) (2) Location: LUQ, RUQ, epigastric Radiation: none Migration to: no migration Severity scale (0 -10): 10 Consistency: constant - Related Data Home Medications Medication Instructions Recorded Confirmed Last Taken Hydralazine HCl 50 mg PO TID 10/15/18 10/15/18 Unknown Previous Rx's Medication Instructions Recorded Last Taken Type Aspirin EC [Halfprin EC] 81 mg PO QDAY #30 tablet. 10/17/18 Unknown Rx AtorvaSTATin [Lipitor] 40 mg PO QHS #30 tablet 10/17/18 Unknown Rx Valsartan [Diovan] 160 mg PO DAILY #30 tablet 10/17/18 Unknown Rx amLODIPine 10 mg PO QDAY #30 tablet 10/17/18 Unknown Rx carvediloL [Coreg] 12.5 mg PO BID #60 tablet 10/17/18 Unknown Rx hydrALAZINE [Apresoline TAB] 100 mg PO Q8HR #90 tab 10/17/18 Unknown Rx Allergies Allergy/AdvReac Type Severity Reaction Status Date / Time No Known Allergies Allergy Verified 10/15/13 00:45 ED Review of Systems ROS: Stated complaint: ABD PAIN/HBP Other details as noted in HPI Constitutional: diaphoresis, weakness. denies: chills, fever Respiratory: denies: cough, shortness of breath, SOB with exertion, SOB at rest, stridor, wheezing Cardiovascular: denies: chest pain, dyspnea on exertion, edema, syncope Gastrointestinal: abdominal pain, nausea, vomiting, diarrhea. denies: hematemesis, hematochezia Musculoskeletal: denies: back pain, arthralgia, myalgia Neurological: headache, weakness (generalized) ED Past Medical Hx - Past Medical History Hx Hypertension: Yes Hx Seizures: Yes (PT STATES 1 SEIZURE ONLY A FEW YRS AGO) Hx HIV: No Additional medical history: "kidney infection" - Surgical History Additional Surgical History: left arm surg due to fx. - Social History Smoking Status: Never Smoker Substance Use Type: None - Medications Home Medications: Home Medications Medication Instructions Recorded Confirmed Last Taken Type Hydralazine HCl 50 mg PO TID 10/15/18 10/15/18 Unknown History Aspirin EC [Halfprin EC] 81 mg PO QDAY #30 tablet. 10/17/18 Unknown Rx AtorvaSTATin [Lipitor] 40 mg PO QHS #30 tablet 10/17/18 Unknown Rx Valsartan [Diovan] 160 mg PO DAILY #30 tablet 10/17/18 Unknown Rx amLODIPine 10 mg PO QDAY #30 tablet 10/17/18 Unknown Rx carvediloL [Coreg] 12.5 mg PO BID #60 tablet 10/17/18 Unknown Rx hydrALAZINE [Apresoline TAB] 100 mg PO Q8HR #90 tab 10/17/18 Unknown Rx ED Physical Exam - General Limitations: No Limitations General appearance: alert, in no apparent distress - Head Head exam: Present: atraumatic, normocephalic - Eye Eye exam: Present: normal appearance, PERRL, EOMI. Absent: scleral icterus Pupils: Present: normal accommodation - ENT ENT exam: Present: normal exam - Neck Neck exam: Present: normal inspection, full ROM - Respiratory Respiratory exam: Present: normal lung sounds bilaterally - Cardiovascular Cardiovascular Exam: Present: regular rate, normal rhythm, normal heart sounds - GI/Abdominal GI/Abdominal exam: Present: soft, tenderness (Diffusely but more so in LUQ and LLQ with some guarding but no rebound. ) - Neurological Exam Neurological exam: Present: alert, oriented X3, CN II-XII intact - Psychiatric Psychiatric exam: Present: normal affect, normal mood - Skin Skin exam: Present: intact ED Course Vital Signs 12/24/19 12/24/19 12/24/19 13:27 16:05 16:31 Temperature 98.5 F Pulse Rate 109 H 100 H 113 H Respiratory 16 Rate Blood Pressure 249/178 249/166 236/138 Blood Pressure [Left] O2 Sat by Pulse 98 Oximetry 12/24/19 12/24/19 16:34 16:56 Temperature Pulse Rate 113 H Respiratory Rate Blood Pressure 236/138 Blood Pressure 219/128 [Left] O2 Sat by Pulse Oximetry - Reevaluation(s) Reevaluation #1: 12/24/19 16:38 Patient creatinine today is noted to be 6.7. After reviewing patient's last ER visit and hospitalization, patient does have a history of chronic kidney disease (stage IV) but has been noncompliant with his nephrology follow-ups. At his last hospitalization/visit, patient creatinine at that time was 4.6 in October 2018. Patient admits that he did not follow-up with nephrology after that hospitalization. He states that he has been compliant with his hydralazine, Norvasc, and Coreg but for the past 3 days has not been able to tolerate it due to his vomiting. Based on last cardiology consult note which was back in October 2018, patient had an echocardiogram which showed at that time that he had nonischemic cardiomyopathy, and chronic diastolic heart failure with EF of 45 to 50%. 12/24/19 16:41 12/24/19 16:[address] Hightower. He recommend starting Cardene drip and nephrology and cardiology consult and doing abdominal US to look at aorta instead of CT without contrast. And recommend getting BPs in both arms. Patient did have stress test during his hospitalization in 10/2018 and it showed findings consistent with nonischemic cardiomyopathy. No scintgraphic evidence of myocardial ischemia with a global hypokinetic LV and ejection fraction of 27%. 12/24/19 17:33 Reevaluation #2: 12/24/19 17:22 Dr Nadya Cornejo (Cardiology) and Dr Vincent Blackwood (Nephrology) both consulted to see patient. Dr Cornejo recommend goal BP 150/80. Both have agreed to see patient. Hospitalist notified of admission Discussed decision to admit with patient. He agrees with plan. He is currently stable. BP in both arms noted -- L arm 219/128, right arm 236/138 12/24/19 17:33 ED Medical Decision Making - Lab Data Result diagrams: 12/24/19 14:29 12/24/19 14:29 - EKG Data Rate: tachycardia - EKG Data Interpretation: nonspecific ST-T wave daisy, LVH - Radiology Data Radiology results: report reviewed Critical care attestation.: If time is entered above; I have spent that time in minutes in the direct care of this critically ill patient, excluding procedure time. ED Disposition Clinical Impression: Hypertensive emergency, Elevated troponin Acute on chronic renal failure Qualifiers: Acute renal failure type: unspecified Chronic kidney disease stage: stage 4 (severe) Qualified Code(s): N17.9 - Acute kidney failure, unspecified Disposition: DC-09 OP ADMIT IP TO THIS HOSP Is pt being admited?: Yes Does the pt Need Aspirin: No Condition: Stable
[2019-12-24 15:33] LABS: Bilirubin,Urine NEG (Negative); Blood,Urine MOD (Negative); Color,Urine Yellow (Yellow); Mucus,Urine FEW /HPF; Urobilinogen,Urine < 2.0 mg/dL (<2.0)
[2019-12-24 15:35] LABS: Protein,Urine >500 mg/dL (Negative)
--- NOTE | 2019-12-24 16:03 | XRay Report ---
CHEST 1 VIEW INDICATION: EPIGASTRIC PAIN. COMPARISON: 10/15/2018 FINDINGS: Support devices: None. Heart: Within normal limits. Pulmonary vasculature: Normal. Lungs/Pleura: No acute air space or interstitial disease. Additional findings: None. IMPRESSION: 1. No acute findings. Signer Name: Yony Palomares MD Signed: 12/24/2019 3:58 PM Workstation Name: [id number]
[2019-12-24 16:56] LABS: Chol/HDL Ratio 4.08 %
[2019-12-24] MEDS ORDERED: niCARdipine 50 MG in SODIUM CHLORIDE 0.9% 250ML 230 ML IV SCH (17:00)
[2019-12-24] MEDS ORDERED: METOCLOPRAMIDE 10 MG/2 ML INJ IV ONE (17:59)
[2019-12-24] MEDS ORDERED: METOCLOPRAMIDE 10 MG/2 ML INJ ONE (18:00)
--- NOTE | 2019-12-24 18:10 | Event Note ---
Face to Face: For this encounter I have reviewed the PA/DEFENSIVE SECONDARY COACH documentation, treatment plan, medical decision making, and I had face to face time with this patient. Patient is a 49-year-old F [place] male who is noncompliant with his blood pressure medicines who states that he is having some epigastric discomfort and hiccups for the last day. Patient presented secondary to the hiccups and abdominal discomfort and it was discovered that the patient had a significantly elevated blood pressure. Despite several doses of hydralazine given the patient's blood pressure remained greater than 200 systolic. Patient also noted to be in acute renal failure as well. Patient will be admitted to the hospitalist service. Cardiology and nephrology have been consulted. Patient was placed on a Cardene drip. Ultrasound of the abdomen will be taken to see if the patient has a AAA. CT may be needed for more detail if his aorta looks abnormal.
--- NOTE | 2019-12-24 18:20 | Ultrasound Report ---
ULTRASOUND ABDOMEN, COMPLETE INDICATION: epigastric pain. COMPARISON: None available. FINDINGS: Pancreas: Normal. Abdominal Aorta: Normal. IVC: Normal. Liver: Normal. Gallbladder: Multiple calcified gallstones with posterior shadowing Bile ducts: Normal. Common Bile Duct measures 5 mm. Right Kidney: Markedly echogenic and small measuring 8.4 cm Left Kidney: Small and markedly echogenic measuring 9.3 cm Spleen: Normal. Free fluid: None. Additional Findings: None. IMPRESSION: 1. Cholelithiasis. 2. Small echogenic kidneys characteristic for chronic medical renal disease. No hydronephrosis. Signer Name: Sang Rust MD Signed: 12/24/2019 6:15 PM Workstation Name: [id number]
--- NOTE | 2019-12-24 21:48 | History and Physical Report ---
History of Present Illness Date of examination: 12/24/19 Date of admission: 12/24/19 17:17 Chief complaint: Abd pain and N?V for 2 days History of present illness: 49 year old male with history of renal insufficiency, hypertension, and hyperlipidemia presents to the ER today complaining of upper abdominal pain, nausea and vomiting for the past 2 days. Patient states that his abdominal pain has been constant, but nonradiating. He states that he has been vomiting intermittently since Sunday. He states that he initially thought his symptoms was related to him being constipated, and so on Sunday he took a laxative but did not have much stool, but today he had 3-4 episodes of watery stools. He reports associated generalized weakness and diaphoresis. He states that he is never had this pain before. He reports no associated chest pain, shortness of breath, URI symptoms or cough. He reports no melana, hematoschezia or hematemesis. He states that he drinks but only occasionally. He denies any history of peptic ulcer disease/gastritis. Patient blood pressure noted to be extremely elevated at triage. Patient admits that he has not been able to take his blood pressure medication due to the fact that he has been vomiting since Sunday. Past Medical History Hypertension: Yes Seizures: Yes (PT STATES 1 SEIZURE ONLY A FEW YRS AGO) Additional medical history: "kidney infection" - Surgical History Additional Surgical History: left arm surg due to fx. - Social History Smoking Status: Never Smoker Substance Use Type: None Family History Htn - Medications Home Medications: Home Medications Medication Instructions Recorded Confirmed Last Taken Type Hydralazine HCl 50 mg PO TID 10/15/18 10/15/18 Unknown History Aspirin EC [Halfprin EC] 81 mg PO QDAY #30 tablet. 10/17/18 Unknown Rx AtorvaSTATin [Lipitor] 40 mg PO QHS #30 tablet 10/17/18 Unknown Rx Valsartan [Diovan] 160 mg PO DAILY #30 tablet 10/17/18 Unknown Rx amLODIPine 10 mg PO QDAY #30 tablet 10/17/18 Unknown Rx carvediloL [Coreg] 12.5 mg PO BID #60 tablet 10/17/18 Unknown Rx hydrALAZINE [Apresoline TAB] 100 mg PO Q8HR #90 tab 10/17/18 Unknown Rx Review of Systems ROS: Stated complaint: ABD PAIN/HBP Other details as noted in HPI Constitutional: diaphoresis, weakness. denies: chills, fever Respiratory: denies: cough, shortness of breath, SOB with exertion, SOB at rest, stridor, wheezing Cardiovascular: denies: chest pain, dyspnea on exertion, edema, syncope Gastrointestinal: abdominal pain, nausea, vomiting, diarrhea. denies: hematemesis, hematochezia Musculoskeletal: denies: back pain, arthralgia, myalgia Neurological: headache, weakness (generalized) Medications and Allergies Allergies Allergy/AdvReac Type Severity Reaction Status Date / Time No Known Allergies Allergy Verified 10/15/13 00:45 Home Medications Medication Instructions Recorded Confirmed Last Taken Type Aspirin EC [Halfprin EC] 81 mg PO QDAY #30 tablet. 10/17/18 12/24/19 Unknown Rx AtorvaSTATin [Lipitor] 40 mg PO QHS #30 tablet 10/17/18 12/24/19 Unknown Rx amLODIPine 10 mg PO QDAY #30 tablet 10/17/18 12/24/19 Unknown Rx carvediloL [Coreg] 12.5 mg PO BID #60 tablet 10/17/18 12/24/19 Unknown Rx hydrALAZINE [Apresoline TAB] 100 mg PO Q8HR #90 tab 10/17/18 12/24/19 Unknown Rx Active Meds: Active Medications Nicardipine HCl 50 mg/ Sodium (Chloride) 250 mls @ 25 mls/hr IV TITR MELODY; Protocol Last Titration: 12/24/19 18:25 Dose: 7.5 mg/hr, 37.5 mls/hr Documented by: Exam - Constitutional Vitals: Temp Pulse Resp BP Pulse Ox 97.8 F 113 H 18 140/87 97 12/24/19 21:00 12/24/19 21:00 12/24/19 21:00 12/24/19 21:00 12/24/19 21:00 General appearance: Present: no acute distress, well-nourished - EENT Eyes: Present: PERRL ENT: hearing intact, clear oral mucosa - Neck Neck: Present: supple, normal ROM - Respiratory Respiratory effort: normal Respiratory: bilateral: CTA - Cardiovascular Heart rate: 78 Rhythm: regular Heart Sounds: Present: S1 & S2. Absent: rub, click - Extremities Extremities: no ischemia, pulses intact, pulses symmetrical, No edema Peripheral Pulses: within normal limits - Abdominal General gastrointestinal: Present: soft, non-tender, non-distended, normal bowel sounds Male genitourinary: Present: normal - Rectal Rectal Exam: deferred - Integumentary Integumentary: Present: clear, warm, dry - Musculoskeletal Musculoskeletal: gait normal, strength equal bilaterally - Psychiatric Psychiatric: appropriate mood/affect, intact judgment & insight - Neurologic Neurologic: CNII-XII intact, moves all extremities - Allied Health Allied health notes reviewed: nursing, case management Results - Labs CBC & Chem 7: 12/25/19 04:20 12/25/19 04:20 Labs: Laboratory Last Values WBC 16.9 K/mm3 (4.5-11.0) H 12/24/19 14:29 RBC 5.28 M/mm3 (3.65-5.03) H 12/24/19 14:29 Hgb 16.9 gm/dl (11.8-15.2) H 12/24/19 14:29 Hct 49.5 % (35.5-45.6) H 12/24/19 14:29 MCV 94 fl (84-94) 12/24/19 14:29 MCH 32 pg (28-32) 12/24/19 14: MCHC 34 % (32-34) 12/24/19 14:29 RDW 13.3 % (13.2-15.2) 12/24/19 14:29 Plt Count 141 K/mm3 (140-440) 12/24/19 14:29 Lymph % (Auto) 6.8 % (13.4-35.0) L 12/24/19 14:29 [place] % (Auto) 5.4 % (0.0-7.3) 12/24/19 14:29 Eos % (Auto) 0.3 % (0.0-4.3) 12/24/19 14: Baso % (Auto) 0.3 % (0.0-1.8) 12/24/19 14:29 Lymph # 1.2 K/mm3 (1.2-5.4) 12/24/19 14:29 [place] # 0.9 K/mm3 (0.0-0.8) H 12/24/19 14:29 Eos # 0.0 K/mm3 (0.0-0.4) 12/24/19 14:29 Baso # 0.0 K/mm3 (0.0-0.1) 12/24/19 14: Seg Neutrophils % 87.2 % (40.0-70.0) H 12/24/19 14:29 Seg Neutrophils # 14.8 K/mm3 (1.8-7.7) H 12/24/19 14:29 Sodium 137 mmol/L (137-145) 12/24/19 14:29 Potassium 4.0 mmol/L (3.6-5.0) 12/24/19 14:29 Chloride 94.8 mmol/L (98-107) L 12/24/19 14:29 Carbon Dioxide 25 mmol/L (22-30) 12/24/19 14:29 Anion Gap 21 mmol/L 12/24/19 14:29 BUN 44 mg/dL (9-20) H 12/24/19 14:29 Creatinine 6.7 mg/dL (0.8-1.5) H 12/24/19 14:29 Estimated GFR 11 ml/min 12/24/19 14:29 BUN/Creatinine Ratio 7 % 12/24/19 14:29 Glucose 145 mg/dL (75-100) H 12/24/19 14:29 Calcium 8.5 mg/dL (8.4-10.2) 12/24/19 14:29 Total Bilirubin 1.00 mg/dL (0.1-1.2) 12/24/19 14:29 AST 27 units/L (5-40) 12/24/19 14:29 ALT 15 units/L (7-56) 12/24/19 14:29 Alkaline Phosphatase 81 units/L (35-129) 12/24/19 14:29 Troponin T 0.129 ng/mL (0.00-0.029) H* 12/24/19 14:29 Total Protein 7.0 g/dL (6.3-8.2) 12/24/19 14: Albumin 4.0 g/dL (3.9-5) 12/24/19 14:29 Albumin/Globulin Ratio 1.3 % 12/24/19 14:29 Triglycerides 189 mg/dL (2-149) H 12/24/19 14:29 Cholesterol 204 mg/dL (50-199) H 12/24/19 14:29 LDL Cholesterol Direct 126 mg/dL (50-130) 12/24/19 14:29 HDL Cholesterol 50 mg/dL (40-59) 12/24/19 14:29 Cholesterol/HDL Ratio 4.08 % 12/24/19 14:29 Lipase 35 units/L (13-60) 12/24/19 14:29 Urine Color Yellow (Yellow) 12/24/19 Unknown Urine Turbidity Slightly-cloudy (Clear) 12/24/19 Unknown Urine pH 5.0 (5.0-7.0) 12/24/19 Unknown Ur Specific [place] 1.022 (1.003-1.030) 12/24/19 Unknown Urine Protein >500 mg/dL (Negative) 12/24/19 Unknown Urine Glucose (UA) 50 mg/dL (Negative) 12/24/19 Unknown Urine Ketones Neg mg/dL (Negative) 12/24/19 Unknown Urine Blood Mod (Negative) 12/24/19 Unknown Urine Nitrite Neg (Negative) 12/24/19 Unknown Urine Bilirubin Neg (Negative) 12/24/19 Unknown Urine Urobilinogen < 2.0 mg/dL (<2.0) 12/24/19 Unknown Ur Leukocyte Esterase Neg (Negative) 12/24/19 Unknown Urine WBC (Auto) 3.0 /HPF (0.0-6.0) 12/24/19 Unknown Urine RBC (Auto) 12.0 /HPF (0.0-6.0) 12/24/19 Unknown U Epithel Cells (Auto) 1.0 /HPF (0-13.0) 12/24/19 Unknown Urine Mucus Few /HPF 12/24/19 Unknown Urine Yeast (Budding) Few /HPF 12/24/19 Unknown Short CBC 12/24/19 12/25/19 Range/Units 14:29 04:20 WBC 16.9 H 13.2 H (4.5-11.0) K/mm3 Hgb 16.9 H 13.1 D (11.8-15.2) gm/dl Hct 49.5 H 38.9 D (35.5-45.6) % Plt Count 141 123 L (140-440) K/mm3 BMP 12/24/19 12/25/19 14:29 04:20 Sodium 137 137 Potassium 4.0 3.7 Chloride 94.8 L 97.9 L Carbon Dioxide 25 24 BUN 44 H 48 H Creatinine 6.7 H 7.1 H Glucose 145 H 127 H Calcium 8.5 7.8 L Cardiac Enzymes 12/24/19 Range/Units 14:29 Troponin T 0.129 H* (0.00-0.029) ng/mL Liver Function 12/24/19 12/25/19 Range/Units 14:29 04:20 Total Bilirubin 1.00 0.60 (0.1-1.2) mg/dL AST 27 16 (5-40) units/L ALT 15 10 (7-56) units/L Alkaline Phosphatase 81 61 (35-129) units/L Albumin 4.0 3.0 L (3.9-5) g/dL Urine 12/24/19 Range/Units Unknown Urine Color Yellow (Yellow) Urine pH 5.0 (5.0-7.0) Ur Specific [place] 1.022 (1.003-1.030) Urine Protein >500 (Negative) mg/dL Urine Glucose (UA) 50 (Negative) mg/dL - Imaging and Cardiology EKG: report reviewed US - abdomen: report reviewed (Small kidneys and cholelithiasis) Assessment and Plan Assessment and plan: CCT 30 minutes Advance Directives: Yes (Full code) VTE prophylaxis?: Chemical Plan of care discussed with patient/family: Yes - Patient Problems (1) Hypertensive emergency Current Visit: Yes Status: Acute Plan to address problem: Uncontrolled BP HOme antihypertensives started IV cardene drip for now Added Valsartan BID (2) IQRA (acute kidney injury) Current Visit: Yes Status: Acute Plan to address problem: IQRA on CKD in view of [facility] kidneys Nephrology consult (3) Acute gastritis Current Visit: Yes Status: Acute Qualifiers: Gastritis type: unspecified gastritis Plan to address problem: IV ZXofran for now Gentle Hydration (4) DVT prophylaxis Current Visit: Yes Status: Acute Plan to address problem: On Heparin and GI prophylaxis
[2019-12-24] MEDS ORDERED: amLODIPine 10 MG TAB PO SCH (22:00)
[2019-12-24] MEDS ORDERED: VALSARTAN 40 MG TAB PO SCH (22:00)
[2019-12-24] MEDS ORDERED: MORPHINE 2 MG/1 ML INJ IV PRN (22:01)
[2019-12-24] MEDS ORDERED: HYDROmorphone 1 MG/1 ML INJ IV PRN (22:01)
[2019-12-24] MEDS ORDERED: ONDANSETRON 4 MG/2 ML INJ IV PRN (22:01)
[2019-12-24] MEDS ORDERED: ACETAMINOPHEN 325 MG TAB PO PRN (22:01)
[2019-12-24] MEDS ORDERED: DOPamine/D5W 800 MG/250 ML 800 MG/250 ML BAG IV SCH (23:00)
[2019-12-24] MEDS: hydrALAZINE 100 MG TAB PO SCH (23:42)
[2019-12-24] MEDS: ASPIRIN EC 81 MG TAB PO SCH (23:43)
[2019-12-24] MEDS: carvediloL 12.5 MG TAB PO SCH (23:46)
[2019-12-25 05:12] LABS: Basophils % (Auto) 0.2 % (0.0-1.8); Eosinophils % (Auto) 0.1 % (0.0-4.3); Hematocrit 38.9 % (35.5-45.6); Hemoglobin 13.1 gm/dl (11.8-15.2); Lymphocytes # (Auto) 0.9 K/mm3 (1.2-5.4); Lymphocytes % (Auto) 6.5 % (13.4-35.0); Mean Corpuscular HGB Conc 34 % (32-34); Mean Corpuscular Volume 94 fl (84-94); Monocytes # (Auto) 0.6 K/mm3 (0.0-0.8); Monocytes % (Auto) 4.7 % (0.0-7.3); Platelet Count 123 K/mm3 (140-440); Red Blood Count 4.16 M/mm3 (3.65-5.03); Red Cell Distribution Width 13.5 % (13.2-15.2)
[2019-12-25 05:36] LABS: Calcium 7.8 mg/dL (8.4-10.2)
[2019-12-25] MEDS: hydrALAZINE 100 MG TAB PO SCH (06:12)
[2019-12-25] MEDS: carvediloL 12.5 MG TAB PO SCH ×2 (09:00→18:40)
--- NOTE | 2019-12-25 09:05 | Progress Note ---
Assessment and Plan Assessment and plan: Hypertensive emergency BP was uncontrolled so was started on Cardene drip, now off Resumed home antihypertensives, however hold Losartan and Hydralazine because BP now normal Acute kidney injury IQRA on CKD in view of samalll kidneys Nephrology consult Acute gastritis IV Zofran for now Add Protonix Patient stable to transfer out of ICU History Interval history: patient with abdominal pain, vomiting no chest pain Hospitalist Physical - Physical exam Narrative exam: GEN: Not in acute distress, lying in bed, HEENT: Normocephalic, atraumatic, Neck: supple, No JVD Lungs: Clear to auscultation bilat, no wheeze, heart;S1 and S2 reg, no murmurs, rubs or gallop Abd:soft, non tender , non distended, normal bowel sounds Ext: No edema, no clubbing, no cyanosis Neuro: Awake,alert, oriented X 3, no focal neurological signs - Constitutional Vitals: Temp Pulse Resp BP Pulse Ox 98.8 F 79 16 120/76 97 12/25/19 04:00 12/25/19 08:00 12/25/19 08:00 12/25/19 08:00 12/25/19 08:00 General appearance: Present: no acute distress, well-nourished Results - Labs CBC & Chem 7: 12/25/19 04:20 12/25/19 04:20 Labs: Laboratory Last Values WBC 13.2 K/mm3 (4.5-11.0) H 12/25/19 04:20 RBC 4.16 M/mm3 (3.65-5.03) 12/25/19 04:20 Hgb 13.1 gm/dl (11.8-15.2) D 12/25/19 04:20 Hct 38.9 % (35.5-45.6) D 12/25/19 04:20 MCV 94 fl (84-94) 12/25/19 04:20 MCH 32 pg (28-32) 12/25/19 04:20 MCHC 34 % (32-34) 12/25/19 04:20 RDW 13.5 % (13.2-15.2) 12/25/19 04:20 Plt Count 123 K/mm3 (140-440) L 12/25/19 04:20 Lymph % (Auto) 6.5 % (13.4-35.0) L 12/25/19 04:20 [place] % (Auto) 4.7 % (0.0-7.3) 12/25/19 04:20 Eos % (Auto) 0.1 % (0.0-4.3) 12/25/19 04:20 Baso % (Auto) 0.2 % (0.0-1.8) 12/25/19 04:20 Lymph # 0.9 K/mm3 (1.2-5.4) L 12/25/19 04:20 [place] # 0.6 K/mm3 (0.0-0.8) 12/25/19 04:20 Eos # 0.0 K/mm3 (0.0-0.4) 12/25/19 04:20 Baso # 0.0 K/mm3 (0.0-0.1) 12/25/19 04:20 Seg Neutrophils % 88.5 % (40.0-70.0) H 12/25/19 04:20 Seg Neutrophils # 11.7 K/mm3 (1.8-7.7) H 12/25/19 04:20 Sodium 137 mmol/L (137-145) 12/25/19 04:20 Potassium 3.7 mmol/L (3.6-5.0) 12/25/19 04:20 Chloride 97.9 mmol/L (98-107) L 12/25/19 04:20 Carbon Dioxide 24 mmol/L (22-30) 12/25/19 04:20 Anion Gap 19 mmol/L 12/25/19 04:20 BUN 48 mg/dL (9-20) H 12/25/19 04:20 Creatinine 7.1 mg/dL (0.8-1.5) H 12/25/19 04:20 Estimated GFR 10 ml/min 12/25/19 04:20 BUN/Creatinine Ratio 7 % 12/25/19 04:20 Glucose 127 mg/dL (75-100) H 12/25/19 04:20 Hemoglobin A1c 5.0 % (4-6) 12/25/19 04:20 Calcium 7.8 mg/dL (8.4-10.2) L 12/25/19 04:20 Total Bilirubin 0.60 mg/dL (0.1-1.2) 12/25/19 04:20 AST 16 units/L (5-40) 12/25/19 04:20 ALT 10 units/L (7-56) 12/25/19 04:20 Alkaline Phosphatase 61 units/L (35-129) 12/25/19 04:20 Troponin T 0.129 ng/mL (0.00-0.029) H* 12/24/19 14:29 Total Protein 5.7 g/dL (6.3-8.2) L 12/25/19 04:20 Albumin 3.0 g/dL (3.9-5) L 12/25/19 04:20 Albumin/Globulin Ratio 1.1 % 12/25/19 04:20 Triglycerides 189 mg/dL (2-149) H 12/24/19 14:29 Cholesterol 204 mg/dL (50-199) H 12/24/19 14:29 LDL Cholesterol Direct 126 mg/dL (50-130) 12/24/19 14:29 HDL Cholesterol 50 mg/dL (40-59) 12/24/19 14:29 Cholesterol/HDL Ratio 4.08 % 12/24/19 14:29 Lipase 35 units/L (13-60) 12/24/19 14:29 Urine Color Yellow (Yellow) 12/24/19 Unknown Urine Turbidity Slightly-cloudy (Clear) 12/24/19 Unknown Urine pH 5.0 (5.0-7.0) 12/24/19 Unknown Ur Specific [place] 1.022 (1.003-1.030) 12/24/19 Unknown Urine Protein >500 mg/dL (Negative) 12/24/19 Unknown Urine Glucose (UA) 50 mg/dL (Negative) 12/24/19 Unknown Urine Ketones Neg mg/dL (Negative) 12/24/19 Unknown Urine Blood Mod (Negative) 12/24/19 Unknown Urine Nitrite Neg (Negative) 12/24/19 Unknown Urine Bilirubin Neg (Negative) 12/24/19 Unknown Urine Urobilinogen < 2.0 mg/dL (<2.0) 12/24/19 Unknown Ur Leukocyte Esterase Neg (Negative) 12/24/19 Unknown Urine WBC (Auto) 3.0 /HPF (0.0-6.0) 12/24/19 Unknown Urine RBC (Auto) 12.0 /HPF (0.0-6.0) 12/24/19 Unknown U Epithel Cells (Auto) 1.0 /HPF (0-13.0) 12/24/19 Unknown Urine Mucus Few /HPF 12/24/19 Unknown Urine Yeast (Budding) Few /HPF 12/24/19 Unknown Active Medications - Current Medications Current Medications: Generic Name Dose Route Start Last Admin Trade Name Freq PRN Reason Stop Dose Admin Acetaminophen 650 mg 12/24/19 22:01 Tylenol PO Q4H PRN Pain MILD(1-3)/Fever >100.5/VILLALOBOS Amlodipine Besylate 10 mg 12/24/19 22:00 12/24/19 23:41 Amlodipine PO 10 mg QDAY MELODY Administration Aspirin 81 mg 12/24/19 22:00 12/24/19 23:43 Halfprin Ec PO 81 mg QDAY MELODY Administration Atorvastatin Calcium 40 mg 12/24/19 22:00 12/24/19 23:42 Lipitor PO 40 mg QHS MELODY Administration Carvedilol 12.5 mg 12/24/19 22:00 12/24/19 23:46 Coreg PO 12.5 mg BID@0800,1700 MELODY Administration Hydralazine HCl 100 mg 12/24/19 22:00 12/25/19 06:12 Apresoline PO 100 mg Q8HR MELODY Administration Hydromorphone HCl 0.5 mg 12/24/19 22:01 Dilaudid IV Q3H PRN Pain , Severe (7-10) Nicardipine HCl 50 mg/ Sodium 250 mls @ 25 mls/hr 12/24/19 17:00 12/24/19 22:00 Chloride IV 0 mg/hr TITR MELODY 0 mls/hr Titration Protocol 5 MG/HR Morphine Sulfate 2 mg 12/24/19 22:01 Morphine IV Q4H PRN Pain, Moderate (4-6) Ondansetron HCl 4 mg 12/24/19 22:01 Zofran IV Q8H PRN Nausea And Vomiting Sodium Chloride 10 ml 12/24/19 23:00 12/24/19 23:43 Sodium Chloride Flush Syringe 10 Ml IV 10 ml BID MELODY Administration Sodium Chloride 10 ml 12/24/19 22:01 Sodium Chloride Flush Syringe 10 Ml IV PRN PRN LINE FLUSH
[2019-12-25] MEDS: ASPIRIN EC 81 MG TAB PO SCH (10:25)
--- NOTE | 2019-12-25 12:09 | Consultation ---
History of Present Illness Consult date: 12/25/19 Consult reason: hypertension History of present illness: This is a 49-year old male with a history of chronic kidney disease, hypertension, known noncompliance with his medications who came to this hospital with complaints of abdominal pain with nausea and vomiting. There were no complaints of chest pain or unusual shortness of breath. On presentation he was found severe hypertensive with a systolic blood pressure at 249. Laboratory studies showed a WBC of 16.9 and worsening kidney disease with a creatinine at 6.7. AN ECG is sinus rhythm with LVH. Patient was initiated on intravenous Nicardipine and admitted by the hospitalist team. Medications and Allergies Allergies Allergy/AdvReac Type Severity Reaction Status Date / Time No Known Allergies Allergy Verified 10/15/13 00:45 Home Medications Medication Instructions Recorded Confirmed Last Taken Type Aspirin EC [Halfprin EC] 81 mg PO QDAY #30 tablet. 10/17/18 12/24/19 Unknown Rx AtorvaSTATin [Lipitor] 40 mg PO QHS #30 tablet 10/17/18 12/24/19 Unknown Rx amLODIPine 10 mg PO QDAY #30 tablet 10/17/18 12/24/19 Unknown Rx carvediloL [Coreg] 12.5 mg PO BID #60 tablet 10/17/18 12/24/19 Unknown Rx hydrALAZINE [Apresoline TAB] 100 mg PO Q8HR #90 tab 10/17/18 12/24/19 Unknown Rx Active Meds: Active Medications Acetaminophen (Tylenol) 650 mg PO Q4H PRN PRN Reason: Pain MILD(1-3)/Fever >100.5/VILLALOBOS Aspirin (Halfprin Ec) 81 mg PO QDAY [facility] Last Admin: 12/25/19 10:25 Dose: 81 mg Documented by: Atorvastatin Calcium (Lipitor) 40 mg PO QHS [facility] Last Admin: 12/24/19 23:42 Dose: 40 mg Documented by: Carvedilol (Coreg) 12.5 mg PO BID@0800,1700 [facility] Last Admin: 12/25/19 09:00 Dose: 12.5 mg Documented by: Hydromorphone HCl (Dilaudid) 0.5 mg IV Q3H PRN PRN Reason: Pain , Severe (7-10) Nicardipine HCl 50 mg/ Sodium (Chloride) 250 mls @ 25 mls/hr IV TITR [facility]; Protocol Last Titration: 12/24/19 22:00 Dose: 0 mg/hr, 0 mls/hr Documented by: Morphine Sulfate (Morphine) 2 mg IV Q4H PRN PRN Reason: Pain, Moderate (4-6) Ondansetron HCl (Zofran) 4 mg IV Q8H PRN PRN Reason: Nausea And Vomiting Sodium Chloride (Sodium Chloride Flush Syringe 10 Ml) 10 ml IV BID [facility] Last Admin: 12/25/19 10:25 Dose: 10 ml Documented by: Sodium Chloride (Sodium Chloride Flush Syringe 10 Ml) 10 ml IV PRN PRN PRN Reason: LINE FLUSH Physical Examination Vital Signs Temp Pulse Resp BP Pulse Ox 98.5 F 109 H 16 249/178 98 12/24/19 13:27 12/24/19 13:27 12/24/19 13:27 12/24/19 13:27 12/24/19 13:27 General appearance: no acute distress HEENT: Positive: PERRL Neck: Positive: trachea midline Cardiac: Positive: Reg Rate and Rhythm Lungs: Positive: Decreased Breath Sounds Neuro: Positive: Grossly Intact Results 12/25/19 04:20 12/25/19 04:20 Cardiac Enzymes 12/24/19 12/25/19 Range/Units 14:29 04:20 AST 27 16 (5-40) units/L Lipids 12/24/19 Range/Units 14:29 Triglycerides 189 H (2-149) mg/dL Cholesterol 204 H (50-199) mg/dL HDL Cholesterol 50 (40-59) mg/dL Cholesterol/HDL Ratio 4.08 % CBC 12/24/19 12/25/19 Range/Units 14:29 04:20 WBC 16.9 H 13.2 H (4.5-11.0) K/mm3 RBC 5.28 H 4.16 (3.65-5.03) M/mm3 Hgb 16.9 H 13.1 D (11.8-15.2) gm/dl Hct 49.5 H 38.9 D (35.5-45.6) % Plt Count 141 123 L (140-440) K/mm3 Lymph # 1.2 0.9 L (1.2-5.4) K/mm3 Wise # 0.9 H 0.6 (0.0-0.8) K/mm3 Eos # 0.0 0.0 (0.0-0.4) K/mm3 Baso # 0.0 0.0 (0.0-0.1) K/mm3 Comprehensive Metabolic Panel 12/24/19 12/25/19 Range/Units 14:29 04:20 Sodium 137 137 (137-145) mmol/L Potassium 4.0 3.7 (3.6-5.0) mmol/L Chloride 94.8 L 97.9 L (98-107) mmol/L Carbon Dioxide 25 24 (22-30) mmol/L BUN 44 H 48 H (9-20) mg/dL Creatinine 6.7 H 7.1 H (0.8-1.5) mg/dL Glucose 145 H 127 H (75-100) mg/dL Calcium 8.5 7.8 L (8.4-10.2) mg/dL AST 27 16 (5-40) units/L ALT 15 10 (7-56) units/L Alkaline Phosphatase 81 61 (35-129) units/L Total Protein 7.0 5.7 L (6.3-8.2) g/dL Albumin 4.0 3.0 L (3.9-5) g/dL Assessment and Plan Accelerated Hypertension Chronic renal failure Non-compliance with medical therapy MPI 10/2018 - no ischemia Echo 10/2018- LVEF 45-50%
--- NOTE | 2019-12-25 15:08 | Consultation ---
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 Initial presentation in the ED was concerning for poorly controlled hypertension, that eventually required initiating nicardipene gtt. He has been weaned off and transitioned to telemetry. Nephrology was consulted secondary to IQRA/CKD. He had previously seen other nephrologists on previous hospitalizations, but has not been able to follow up with any one as an outpatient. Past History Past Medical History: hypertension, hyperlipidemia, renal failure Past Surgical History: No surgical history Social history: no significant social history Family history: hypertension Medications and Allergies Allergies Allergy/AdvReac Type Severity Reaction Status Date / Time No Known Allergies Allergy Verified 10/15/13 00:45 Home Medications Medication Instructions Recorded Confirmed Last Taken Type Aspirin EC [Halfprin EC] 81 mg PO QDAY #30 tablet. 10/17/18 12/24/19 Unknown Rx AtorvaSTATin [Lipitor] 40 mg PO QHS #30 tablet 10/17/18 12/24/19 Unknown Rx amLODIPine 10 mg PO QDAY #30 tablet 10/17/18 12/24/19 Unknown Rx carvediloL [Coreg] 12.5 mg PO BID #60 tablet 10/17/18 12/24/19 Unknown Rx hydrALAZINE [Apresoline TAB] 100 mg PO Q8HR #90 tab 10/17/18 12/24/19 Unknown Rx Active Meds: Active Medications Acetaminophen (Tylenol) 650 mg PO Q4H PRN PRN Reason: Pain MILD(1-3)/Fever >100.5/VILLALOBOS Aspirin (Halfprin Ec) 81 mg PO QDAY [facility] Last Admin: 12/25/19 10:25 Dose: 81 mg Documented by: Atorvastatin Calcium (Lipitor) 40 mg PO QHS [facility] Last Admin: 12/24/19 23:42 Dose: 40 mg Documented by: Carvedilol (Coreg) 12.5 mg PO BID@0800,1700 [facility] Last Admin: 12/25/19 09:00 Dose: 12.5 mg Documented by: Hydromorphone HCl (Dilaudid) 0.5 mg IV Q3H PRN PRN Reason: Pain , Severe (7-10) Nicardipine HCl 50 mg/ Sodium (Chloride) 250 mls @ 25 mls/hr IV TITR MELODY; Protocol Last Titration: 12/24/19 22:00 Dose: 0 mg/hr, 0 mls/hr Documented by: Morphine Sulfate (Morphine) 2 mg IV Q4H PRN PRN Reason: Pain, Moderate (4-6) Ondansetron HCl (Zofran) 4 mg IV Q8H PRN PRN Reason: Nausea And Vomiting Sodium Chloride (Sodium Chloride Flush Syringe 10 Ml) 10 ml IV BID [facility] Last Admin: 12/25/19 10:25 Dose: 10 ml Documented by: Sodium Chloride (Sodium Chloride Flush Syringe 10 Ml) 10 ml IV PRN PRN PRN Reason: LINE FLUSH Review of Systems All systems: negative Constitutional: fatigue, weakness, poor appetite Gastrointestinal: abdominal pain, nausea, vomiting Exam - Vital Signs Vital signs: Vital Signs Temp Pulse Resp BP Pulse Ox 98.5 F 109 H 16 249/178 98 12/24/19 13:27 12/24/19 13:27 12/24/19 13:27 12/24/19 13:27 12/24/19 13:27 - General Appearance General appearance: well-developed, well-nourished, appears stated age EENT: ATNC, PERRL Neck: Present: neck supple, trachea midline Respiratory: Clear to Ascultation, Normal Exam Heart: regular, normal heart rate Gastrointestinal: Present: normal, normoactive bowel sounds Integumentary: no rash, warm and dry Neurologic: no focal deficit, alert and oriented x3 Psychiatric: mood/affect appropriate, cooperative Results - Lab Results 12/25/19 04:20 12/25/19 04:20 Most recent lab results Calcium 7.8 mg/dL (8.4-10.2) L 12/25/19 04:20 - Image Kidney/bladder ultrasound: report reviewed Assessment and Plan - Patient Problems (1) Acute kidney injury superimposed on CKD Current Visit: Yes Status: Acute Plan to address problem: Patient is likely showing progression of CKD to stage V. Acute renal injury is in the setting of poorly controlled HTN/Hypertensive emergency. Discussed at length with patient that he has likely been experiencing uremic symptoms (abdominal pain, nausea, vomiting, poor appetite) associated with worsening renal function/clearance. His blood pressure is better controlled since admission and he has been able to be weaned off nicardipine gtt. He has no pericardial friction rub, he is not short of breath, chest xray is clear, and has no evidence of persistent hyperkalemia or severe acidosis. Therefore he does not have an acute reason to initiate HD. However, we will closely monitor renal function daily. If uremic symptoms and renal function worsen, discussed with patient that we may likely need to initiate HD as an inpatient. Renal US shows markedly echogenic kidneys, there is no utility at this time for a renal biopsy. (2) Hypertensive emergency Current Visit: Yes Status: Acute Plan to address problem: Patient has been able to be weaned off cardene gtt. Will need to monitor closely on current oral regimen. (3) Abdominal pain Current Visit: Yes Status: Acute Plan to address problem: Abdominal US noted with evidence of cholelithiasis without evidence of bile duct obstruction or cholecystitis. Will continue to monitor closely. (4) Nausea & vomiting Current Visit: Yes Status: Acute Plan to address problem: Likely secondary to worsening renal function. Symptom management. Improved this afternoon. Will monitor closely.
[2019-12-25 16:40] LABS: Creatinine,Urine 169.6 mg/dL (0.1-20.0); Protein/Creatinine Ratio,Urine 0.7
[2019-12-25] MEDS: PANTOPRAZOLE 40 MG TAB PO SCH (18:41)
[2019-12-26] MEDS: carvediloL 12.5 MG TAB PO SCH (08:23)
[2019-12-26] MEDS: hydrALAZINE 100 MG TAB PO SCH ×2 (08:24→14:28)
[2019-12-26] MEDS ORDERED: amLODIPine 10 MG TAB PO SCH (10:00)
--- NOTE | 2019-12-26 10:12 | Progress Note ---
Assessment and Plan Accelerated Hypertension Chronic renal failure Non-compliance with medical therapy MPI 10/2018 - no ischemia Echo 10/2018- LVEF 45-50% Recommendations: Continue current management Titrate BP as tolerated Stressed compliance Subjective Date of service: 12/26/19 Principal diagnosis: Hypertensive urgency Interval history: Patient denies chest pain or shortness of breath Objective Vital Signs Temp Pulse Resp BP BP Pulse Ox 12/26/19 08:23 83 167/99 12/26/19 05:36 83 167/99 12/26/19 05:19 98.7 F 92 H 20 180/108 97 12/25/19 23:39 97.3 F L 79 20 144/86 97 12/25/19 18:40 81 134/86 12/25/19 16:14 97.3 F L 81 18 134/86 97 12/25/19 11:11 97.9 F 79 16 131/75 97 12/25/19 10:30 80 16 126/80 97 12/25/19 10:21 78 15 125/76 97 - Physical Examination HEENT: Positive: PERRL Neck: Positive: neck supple, trachea midline Cardiac: Positive: Reg Rate and Rhythm Lungs: Positive: Normal Exam Neuro: Positive: Grossly Intact - Imaging and Cardiology EKG: report reviewed
[2019-12-26] MEDS: ASPIRIN EC 81 MG TAB PO SCH (10:28)
[2019-12-26] MEDS: PANTOPRAZOLE 40 MG TAB PO SCH (10:33)
[2019-12-26 12:57] LABS: Hematocrit 40.2 % (35.5-45.6); Hemoglobin 13.6 gm/dl (11.8-15.2); Mean Corpuscular HGB Conc 34 % (32-34); Mean Corpuscular Volume 94 fl (84-94); Platelet Count 133 K/mm3 (140-440); Red Blood Count 4.27 M/mm3 (3.65-5.03); Red Cell Distribution Width 13.1 % (13.2-15.2)
--- NOTE | 2019-12-26 13:35 | Progress Note ---
Assessment and Plan - Patient Problems (1) Acute kidney injury superimposed on CKD Current Visit: Yes Status: Acute Plan to address problem: Patient is likely showing progression of CKD to stage V. Acute renal injury is in the setting of poorly controlled HTN/Hypertensive emergency. Discussed at length with patient that he has likely been experiencing uremic symptoms (abdominal pain, nausea, vomiting, poor appetite) associated with worsening renal function/clearance. His blood pressure is better controlled since admission and he has been able to be weaned off nicardipine gtt. He has no pericardial friction rub, he is not short of breath, chest xray is clear, and has no evidence of persistent hyperkalemia or severe acidosis. Therefore he does not have an acute reason to initiate HD. However, we will closely monitor renal function daily. Renal function today remains stable and he does not have any indications that necessitate the acute initiation of HD as an inpatient. Patient needs to follow up with me closely in the office within one week post discharge for close follow up. Renal US shows markedly echogenic kidneys, there is no utility at this time for a renal biopsy. (2) Hypertensive emergency Current Visit: Yes Status: Acute Plan to address problem: Patient has been able to be weaned off cardene gtt. Will need to monitor closely on current oral regimen. (3) Abdominal pain Current Visit: Yes Status: Acute Plan to address problem: Abdominal US noted with evidence of cholelithiasis without evidence of bile duct obstruction or cholecystitis. Will continue to monitor closely. (4) Nausea & vomiting Current Visit: Yes Status: Acute Plan to address problem: Likely secondary to worsening renal function. Symptom management. Resolved this morning. Will monitor closely. Subjective Date of service: 12/26/19 Principal diagnosis: Hypertensive urgency Interval history: Patient looks better this morning, eating breakfast. Overall renal function is stable, and no there remains no acute needs to initiate HD at present time. Objective - Vital Signs Vital signs: Vital Signs - 12hr 12/26/19 12/26/19 12/26/19 05:19 05:36 08:23 Temperature 98.7 F Pulse Rate 92 H 83 83 Respiratory 20 Rate Blood Pressure 180/108 167/99 Blood Pressure 167/99 [Left] O2 Sat by Pulse 97 Oximetry 12/26/19 10:28 Temperature Pulse Rate 89 Respiratory Rate Blood Pressure 132/82 Blood Pressure [Left] O2 Sat by Pulse Oximetry - General Appearance General appearance: well-developed, well-nourished, appears stated age EENT: ATNC, PERRL Neck: no JVD, no thyromegaly Respiratory: Present: Clear to Ascultation Cardiology: regular, S1S2 Gastrointestinal: normal, normoactive bowel sounds Integumentary: no rash, warm and dry Neurologic: no focal deficit Musculoskeletal: deferred Psychiatric: mood/affect appropriate - Lab 12/26/19 12:54 12/26/19 12:54 Most recent lab results Calcium 8.0 mg/dL (8.4-10.2) L 12/26/19 12:54 Urine Creatinine 169.6 mg/dL (0.1-20.0) H 12/25/19 16:00 Urine Sodium 16 mmol/L 12/25/19 16:00 Urine Total Protein 118 mg/dL (5-11.8) H 12/25/19 16:00 - Allied health notes Allied health notes reviewed: nursing Medications & Allergies - Medications Allergies/Adverse Reactions: Allergies No Known Allergies Allergy (Verified 10/15/13 00:45) Home Medications: Home Medications Medication Instructions Recorded Confirmed Last Taken Type Aspirin EC [Halfprin EC] 81 mg PO QDAY #30 tablet. 10/17/18 12/24/19 Unknown Rx AtorvaSTATin [Lipitor] 40 mg PO QHS #30 tablet 10/17/18 12/24/19 Unknown Rx amLODIPine 10 mg PO QDAY #30 tablet 10/17/18 12/24/19 Unknown Rx carvediloL [Coreg] 12.5 mg PO BID #60 tablet 10/17/18 12/24/19 Unknown Rx hydrALAZINE [Apresoline TAB] 100 mg PO Q8HR #90 tab 10/17/18 12/24/19 Unknown Rx Active Medications: Generic Name Dose Route Start Last Admin Trade Name Freq PRN Reason Stop Dose Admin Acetaminophen 650 mg 12/24/19 22:01 Tylenol PO Q4H PRN Pain MILD(1-3)/Fever >100.5/VILLALOBOS Amlodipine Besylate 10 mg 12/26/19 10:00 12/26/19 10:28 Amlodipine PO 10 mg QDAY MELODY Administration Aspirin 81 mg 12/24/19 22:00 12/26/19 10:28 Halfprin Ec PO 81 mg QDAY MELODY Administration Atorvastatin Calcium 40 mg 12/24/19 22:00 12/25/19 21:51 Lipitor PO 40 mg QHS MELODY Administration Carvedilol 12.5 mg 12/24/19 22:00 12/26/19 08:23 Coreg PO 12.5 mg BID@0800,1700 MELODY Administration Hydralazine HCl 100 mg 12/26/19 08:00 12/26/19 08:24 Apresoline PO 100 mg TID MELODY Administration Hydromorphone HCl 0.5 mg 12/24/19 22:01 Dilaudid IV Q3H PRN Pain , Severe (7-10) Nicardipine HCl 50 mg/ Sodium 250 mls @ 25 mls/hr 12/24/19 17:00 12/24/19 22:00 Chloride IV 0 mg/hr TITR MELODY 0 mls/hr Titration Protocol 5 MG/HR Morphine Sulfate 2 mg 12/24/19 22:01 Morphine IV Q4H PRN Pain, Moderate (4-6) Ondansetron HCl 4 mg 12/24/19 22:01 Zofran IV Q8H PRN Nausea And Vomiting Pantoprazole Sodium 40 mg 12/25/19 17:00 12/26/19 10:33 Protonix PO 40 mg QDAY MELODY Administration Sodium Chloride 10 ml 12/24/19 23:00 12/26/19 10:35 Sodium Chloride Flush Syringe 10 Ml IV 10 ml BID MELODY Administration Sodium Chloride 10 ml 12/24/19 22:01 Sodium Chloride Flush Syringe 10 Ml IV PRN PRN LINE FLUSH
--- NOTE | 2019-12-26 14:53 | Discharge Summary ---
Providers - Providers Date of Admission: 12/24/19 17:17 Date of discharge: 12/26/19 Attending physician: FAMILIA TOBIN 12/24/19 17:10 Consult to Physician [CONS] Urgent Comment: BRY Bettencourt/DR LE @[id number] Consulting Provider: DOMINIC VELEZ Physician Instructions: Reason For Exam: Hypertensive emergency; Elevated troponin 12/24/19 17:13 Consult to Physician [CONS] Urgent Comment: BRY Bettencourt/DR BERGERON @[id number] Consulting Provider: YEN BERGERON Physician Instructions: Reason For Exam: Acute on Chronic renal failure Primary care physician: DISPATCHER TUGBOAT Hospitalization Condition: Fair Disposition: DC-01 TO HOME OR SELFCARE Exam - Constitutional Vitals: Temp Pulse Resp BP Pulse Ox 98.7 F 89 20 132/82 97 12/26/19 05:19 12/26/19 10:28 12/26/19 05:19 12/26/19 10:28 12/26/19 05:19 Plan Activity: advance as tolerated Diet: low fat, low cholesterol, low salt, renal Plan of Treatment: 1.Follow up with PCP at [facility] in 3-5 days. 2.Follow up with [facility] at [facility] in 1 week Follow up with: PRIMARY CAREMD [Primary Care Provider] - 3-5 Days
[2019-12-26 15:50] VITALS: BP 136/75
== END 2019-12-26 17:50 | disposition home or self-care (01) | DRG 445 ==
LOC: ED 13:20 → CC1 17:17 → 3A 12-25 12:32
PROVIDERS: ADMIT Internal Medicine; ATTEND Internal Medicine
DX: K80.20 Calculus of gallbladder without cholecystitis without obstruction (principal); N17.9 Acute kidney failure, unspecified; I16.1 Hypertensive emergency; I12.0 Hypertensive chronic kidney disease with stage 5 chronic kidney disease or end stage renal disease; N18.5 Chronic kidney disease, stage 5; K29.00 Acute gastritis without bleeding; Z91.14 Patient's other noncompliance with medication regimen; Z82.49 Family history of ischemic heart disease and other diseases of the circulatory system; Z79.82 Long term (current) use of aspirin; Z79.899 Other long term (current) drug therapy
CPT/HCPCS: 36415; 71045; 76700; 80048; 80053; 80061; 81001; 82436; 82570; 83036; 83690; 84156; 84300; 84484; 85025; 85027; 93005; 93010; 96374; G0378; A9270-GY; J0360; J2270; J2405; J2765; J7030; J7050

== ENCOUNTER 2021-10-13 13:00 | Emergency (ER) | payer OTHER ==
[2021-10-13 16:58] LABS: Calcium 8.6 mg/dL (8.4-10.2)
[2021-10-13 17:04] LABS: Basophils # (Auto) 0.1 K/mm3 (0.0-0.1); Eosinophils # (Auto) 0.2 K/mm3 (0.0-0.4); Eosinophils % (Auto) 3.9 % (0.0-4.3); Hematocrit 30.1 % (35.5-45.6); Hemoglobin 9.8 gm/dl (11.8-15.2); Lymphocytes # (Auto) 1.3 K/mm3 (1.2-5.4); Lymphocytes % (Auto) 21.4 % (13.4-35.0); Mean Corpuscular HGB Conc 33 % (32-34); Mean Corpuscular Volume 100 fl (84-94); Monocytes # (Auto) 0.5 K/mm3 (0.0-0.8); Monocytes % (Auto) 9.1 % (0.0-7.3); Platelet Count 246 K/mm3 (140-440); Red Cell Distribution Width 13.9 % (13.2-15.2)
[2021-10-13] MEDS ORDERED: SODIUM POLYSTYRENE 15 GM/60 ML ORAL LIQD PO ONE (17:15)
[2021-10-13] MEDS ORDERED: CALCIUM GLUCONATE 1,000 MG in SODIUM CHLORIDE 0.9% 100 ML IV ONE (17:16)
--- NOTE | 2021-10-13 17:19 | Emergency Department Report ---
ED General Adult HPI - General Chief complaint: Medical Clearance Stated complaint: Missed dialysis Time Seen by Provider: 10/13/21 16:39 Source: patient Mode of arrival: Ambulatory Limitations: No Limitations - History of Present Illness Initial comments: Patient presents to the emergency department for evaluation after missing dialysis. Patient states goes to dialysis on Sunday, , Sunday. Patient states his last dialysis was on Sunday. He states when he went to dialysis today he was told to go to the emergency department for evaluation. Patient denies any chest pain or shortness of breath. Patient states he missed dialysis because he was having transportation issues at the time. Severity scale (0 -10): 0 Consistency: constant Improves with: none Worsens with: none Associated Symptoms: denies other symptoms Treatments Prior to Arrival: none - Related Data Previous Rx's Medication Instructions Recorded Last Taken Type Aspirin EC [Halfprin EC] 81 mg PO QDAY #30 tablet. 10/17/18 Unknown Rx AtorvaSTATin [Lipitor] 40 mg PO QHS #30 tablet 10/17/18 Unknown Rx amLODIPine 10 mg PO QDAY #30 tablet 10/17/18 Unknown Rx carvediloL [Coreg] 12.5 mg PO BID #60 tablet 10/17/18 Unknown Rx hydrALAZINE [Apresoline TAB] 100 mg PO Q8HR #90 tab 10/17/18 Unknown Rx Allergies Allergy/AdvReac Type Severity Reaction Status Date / Time No Known Allergies Allergy Verified 10/13/21 14:11 ED Review of Systems ROS: Stated complaint: Missed dialysis Other details as noted in HPI Comment: All other systems reviewed and negative Constitutional: denies: chills, fever Eyes: denies: eye pain, eye discharge, vision change ENT: denies: ear pain, throat pain Respiratory: denies: cough, shortness of breath, wheezing Cardiovascular: denies: chest pain, palpitations Endocrine: no symptoms reported Gastrointestinal: denies: abdominal pain, nausea, diarrhea Genitourinary: denies: urgency, dysuria Musculoskeletal: denies: back pain, joint swelling, arthralgia Skin: denies: rash, lesions Neurological: denies: headache, weakness, paresthesias Psychiatric: denies: anxiety, depression Hematological/Lymphatic: denies: easy bleeding, easy bruising ED Past Medical Hx - Past Medical History Previous Medical History?: Yes Hx Hypertension: Yes Hx Renal Disease: Yes Hx Seizures: Yes (PT STATES 1 SEIZURE ONLY A FEW YRS AGO) Hx HIV: No Additional medical history: "kidney infection" - Surgical History Additional Surgical History: left arm surg due to fx. - Social History Smoking Status: Never Smoker - Medications Home Medications: Home Medications Medication Instructions Recorded Confirmed Last Taken Type Aspirin EC [Halfprin EC] 81 mg PO QDAY #30 tablet. 10/17/18 12/24/19 Unknown Rx AtorvaSTATin [Lipitor] 40 mg PO QHS #30 tablet 10/17/18 12/24/19 Unknown Rx amLODIPine 10 mg PO QDAY #30 tablet 10/17/18 12/24/19 Unknown Rx carvediloL [Coreg] 12.5 mg PO BID #60 tablet 10/17/18 12/24/19 Unknown Rx hydrALAZINE [Apresoline TAB] 100 mg PO Q8HR #90 tab 10/17/18 12/24/19 Unknown Rx ED Physical Exam - General Limitations: No Limitations General appearance: alert, in no apparent distress - Head Head exam: Present: atraumatic, normocephalic - Eye Eye exam: Present: normal appearance, PERRL, EOMI - ENT ENT exam: Present: mucous membranes moist - Neck Neck exam: Present: normal inspection - Respiratory Respiratory exam: Present: normal lung sounds bilaterally. Absent: respiratory distress - Cardiovascular Cardiovascular Exam: Present: regular rate, normal rhythm. Absent: systolic murmur, diastolic murmur, rubs, gallop - GI/Abdominal GI/Abdominal exam: Present: soft, normal bowel sounds. Absent: distended, tenderness - Rectal Rectal exam: Present: deferred - Extremities Exam Extremities exam: Present: normal inspection - Back Exam Back exam: Present: normal inspection - Neurological Exam Neurological exam: Present: alert, oriented X3, CN II-XII intact. Absent: motor sensory deficit - Psychiatric Psychiatric exam: Present: normal affect, normal mood - Skin Skin exam: Present: warm, dry, intact, normal color. Absent: rash ED Medical Decision Making - Lab Data Result diagrams: 10/13/21 16:13 10/13/21 16:13 Lab Results 10/13/21 10/13/21 Range/Units 16:13 16:13 WBC 6.0 (4.5-11.0) K/mm3 RBC 3.00 L (3.65-5.03) M/mm3 Hgb 9.8 L (11.8-15.2) gm/dl Hct 30.1 L (35.5-45.6) % MCV 100 H (84-94) fl MCH 33 H (28-32) pg MCHC 33 (32-34) % RDW 13.9 (13.2-15.2) % Plt Count 246 (140-440) K/mm3 Lymph % (Auto) 21.4 (13.4-35.0) % [place] % (Auto) 9.1 H (0.0-7.3) % Eos % (Auto) 3.9 (0.0-4.3) % Baso % (Auto) 1.0 (0.0-1.8) % Lymph # (Auto) 1.3 (1.2-5.4) K/mm3 [place] # (Auto) 0.5 (0.0-0.8) K/mm3 Eos # (Auto) 0.2 (0.0-0.4) K/mm3 Baso # (Auto) 0.1 (0.0-0.1) K/mm3 Seg Neutrophils % 64.6 (40.0-70.0) % Seg Neutrophils # 3.9 (1.8-7.7) K/mm3 Sodium 142 (137-145) mmol/L Potassium 5.3 H (3.6-5.0) mmol/L Chloride 103.3 (98-107) mmol/L Carbon Dioxide 19 L (22-30) mmol/L Anion Gap 25 mmol/L BUN 87 H (9-20) mg/dL Creatinine 18.0 H (0.8-1.3) mg/dL Estimated GFR 3 ml/min BUN/Creatinine Ratio 5 % Glucose 97 (75-100) mg/dL Calcium 8.6 (8.4-10.2) mg/dL - Medical Decision Making Patient given Kayexalate and calcium gluconate Critical care attestation.: If time is entered above; I have spent that time in minutes in the direct care of this critically ill patient, excluding procedure time. ED Disposition Clinical Impression: Hyperkalemia, ESRD (end stage renal disease) on dialysis Disposition: 01 HOME / SELF CARE / HOMELESS Is pt being admited?: No Does the pt Need Aspirin: No Condition: Stable Instructions: Hyperkalemia Additional Instructions: return if worse Referrals: PRIMARY CARE, [Primary Care Provider] - 3-5 Days PRANAY QUIÑONEZ MD [Staff Physician] - 3-5 Days
[2021-10-13 18:28] VITALS: BP 168/104
== END 2021-10-13 18:28 | disposition home or self-care (01) ==
LOC: ED 13:00
DX: I12.0 Hypertensive chronic kidney disease with stage 5 chronic kidney disease or end stage renal disease (principal); E87.5 Hyperkalemia; N18.6 End stage renal disease; Z99.2 Dependence on renal dialysis; R56.9 Unspecified convulsions
CPT/HCPCS: 36415; 80048; 85025; 99283; J0610

== ENCOUNTER 2022-03-07 14:14 | Emergency (ER) | payer MEDICARE ==
[2022-03-07 15:28] LABS: Hematocrit 30.7 % (35.5-45.6); Hemoglobin 10.2 gm/dl (11.8-15.2); Mean Corpuscular HGB Conc 33 % (32-34); Mean Corpuscular Volume 99 fl (84-94); Platelet Count 176 K/mm3 (140-440); Red Blood Count 3.12 M/mm3 (3.65-5.03); Red Cell Distribution Width 14.5 % (13.2-15.2)
[2022-03-07 15:48] LABS: Albumin 4.2 g/dL (3.9-5); Calcium 8.5 mg/dL (8.4-10.2)
--- NOTE | 2022-03-07 18:35 | Emergency Department Report ---
ED General Adult HPI - General Chief complaint: Medical Clearance Stated complaint: They sent me here Time Seen by Provider: 03/07/22 18:27 Source: patient Mode of arrival: Ambulatory Limitations: No Limitations - History of Present Illness Initial comments: Primary CARE doctor: [facility] Nephrology: Dr. Watkins This patient is a pleasant and cooperative 51-year-old gentleman, who follows with the [facility]. The patient currently has a left lower quadrant peritoneal dialysis catheter, which is scheduled for removal on March 23, within the [facility]. The patient reports that he was evaluated by one of the nurses within the [facility] today, as he was complaining of mild discomfort to his left lower quadrant PD catheter site. He has minimal bloody discharge and tenderness, and the nurse recommended that he present to the emergency room today. The patient himself otherwise denies headache, neck pain, chest pain, severe abd ominal pain, shortness of breath, nausea, vomiting diarrhea, testicular pain or urinary symptoms. He has an indwelling thoracic vascular access catheter, and receives hemodialysis Sunday, , Sunday. -: Gradual, days(s) Location: abdomen, left Consistency: intermittent Improves with: rest Worsens with: other (Palpation) Associated Symptoms: denies other symptoms - Related Data Previous Rx's Medication Instructions Recorded Last Taken Type Aspirin EC [Halfprin EC] 81 mg PO QDAY #30 tablet. 10/17/18 Unknown Rx AtorvaSTATin [Lipitor] 40 mg PO QHS #30 tablet 10/17/18 Unknown Rx amLODIPine 10 mg PO QDAY #30 tablet 10/17/18 Unknown Rx carvediloL [Coreg] 12.5 mg PO BID #60 tablet 10/17/18 Unknown Rx hydrALAZINE [Apresoline TAB] 100 mg PO Q8HR #90 tab 10/17/18 Unknown Rx Doxycycline Hyclate [Doxycycline 100 mg PO Q12HR #12 tab 03/07/22 Unknown Rx Hyclate TAB] Allergies Allergy/AdvReac Type Severity Reaction Status Date / Time No Known Allergies Allergy Verified 03/07/22 15:41 ED Review of Systems ROS: Stated complaint: DIALYSIS Other details as noted in HPI Comment: All other systems reviewed and negative Gastrointestinal: as per HPI Skin: other (Minimal bloody discharge from PD catheter site) ED Past Medical Hx - Past Medical History Previous Medical History?: Yes Hx Hypertension: Yes Hx Renal Disease: Yes Hx Seizures: Yes (PT STATES 1 SEIZURE ONLY A FEW YRS AGO) Hx HIV: No Additional medical history: "kidney infection" - Surgical History Additional Surgical History: left arm surg due to fx. - Social History Smoking Status: Never Smoker - Medications Home Medications: Home Medications Medication Instructions Recorded Confirmed Last Taken Type Aspirin EC [Halfprin EC] 81 mg PO QDAY #30 tablet. 10/17/18 12/24/19 Unknown Rx AtorvaSTATin [Lipitor] 40 mg PO QHS #30 tablet 10/17/18 12/24/19 Unknown Rx amLODIPine 10 mg PO QDAY #30 tablet 10/17/18 12/24/19 Unknown Rx carvediloL [Coreg] 12.5 mg PO BID #60 tablet 10/17/18 12/24/19 Unknown Rx hydrALAZINE [Apresoline TAB] 100 mg PO Q8HR #90 tab 10/17/18 12/24/19 Unknown Rx Doxycycline Hyclate [Doxycycline 100 mg PO Q12HR #12 tab 03/07/22 Unknown Rx Hyclate TAB] ED Physical Exam - General Limitations: No Limitations General appearance: alert, in no apparent distress - Head Head exam: Present: atraumatic, normocephalic - Eye Eye exam: Present: normal appearance, EOMI. Absent: nystagmus - ENT ENT exam: Present: normal exam, normal orophraynx, mucous membranes moist, normal external ear exam - Neck Neck exam: Present: normal inspection, full ROM. Absent: tenderness, meningismus - Respiratory Respiratory exam: Present: normal lung sounds bilaterally, other (There is a right-sided thoracic vascular access catheter noted). Absent: respiratory distress, wheezes, rales, rhonchi, stridor - Cardiovascular Cardiovascular Exam: Present: regular rate, normal rhythm, normal heart sounds. Absent: bradycardia, tachycardia, irregular rhythm, systolic murmur, diastolic murmur, rubs, gallop - GI/Abdominal GI/Abdominal exam: Present: soft, other (There is a left lower quadrant PD catheter noted. There is minimal surrounding induration. There is minimal bloody discharge. There is no tenderness to deep palpation. There is no fluctuance). Absent: distended, tenderness, guarding, rebound, rigid, pulsatile mass - Rectal Rectal exam: Present: deferred - Extremities Exam Extremities exam: Present: normal inspection, full ROM, other (2+ pulses noted in the bilateral upper and lower extremities. There is no palpable cord. negative Homans sign. Muscular compartments are soft. The pelvis is stable.). Absent: calf tenderness - Back Exam Back exam: Present: normal inspection. Absent: tenderness, CVA tenderness (R), CVA tenderness (L), paraspinal tenderness, vertebral tenderness - Neurological Exam Neurological exam: Present: alert, oriented X3, normal gait, other (No facial droop. Tongue midline. Extraocular movements intact bilaterally. Facial sensation intact to light touch in V1, V2, V3 distribution bilaterally. 5 and a 5 strength in 4 extremities. Sensation intact to light touch in 4 extremities.). Absent: motor sensory deficit - Psychiatric Psychiatric exam: Present: normal affect, normal mood - Skin Skin exam: Present: warm, dry, intact, normal color. Absent: rash ED Course Vital Signs 03/07/22 03/07/22 03/07/22 15:39 18:32 18:39 Temperature 98.4 F Pulse Rate 75 88 Respiratory 16 10 L Rate Blood Pressure 148/90 O2 Sat by Pulse 100 100 100 Oximetry - Reevaluation(s) Reevaluation #1: 03/07/22 19:46 Differential diagnosis, including but not limited to: End-stage renal disease, peritoneal dialysis catheter in place Assessment and plan: 51-year-old gentleman, who is afebrile with reassuring vital signs, with a benign and unremarkable physical examination with exception of minimal left lower quadrant skin induration and minimal bloody discharge, w ithout significant abdominal tenderness, rebound or guarding. Laboratory studies were ordered prior to my personal evaluation of this patient. They are reviewed and appreciated. He does not appear to be acutely or emergently decompensated. Contacted his covering conference planning manager, Dr. Medina. Discussed the patient's history, physical, laboratory studies, and clinical impression. We both agree this patient does not meet criteria for admission for emergency hemodialysis. Patient may start oral antibiotics, warm compresses, and follow-up with [facility] on March 23 as scheduled for his elective PD catheter removal. Patient observed in this ER for hours without clinical decompensation. As a courtesy, we will discussed with the [facility] network. Discussed this with the patient. All questions answered. Return precautions are reviewed. ED Medical Decision Making - Lab Data Result diagrams: 03/07/22 15:06 03/07/22 15:06 Vital Signs 03/07/22 15:39 Temperature 98.4 F Pulse Rate 75 Respiratory 16 Rate Blood Pressure 148/90 O2 Sat by Pulse 100 Oximetry Lab Results 03/07/22 03/07/22 Range/Units 15:06 15:06 WBC 6.2 (4.5-11.0) K/mm3 RBC 3.12 L (3.65-5.03) M/mm3 Hgb 10.2 L (11.8-15.2) gm/dl Hct 30.7 L (35.5-45.6) % MCV 99 H (84-94) fl MCH 33 H (28-32) pg MCHC 33 (32-34) % RDW 14.5 (13.2-15.2) % Plt Count 176 (140-440) K/mm3 Sodium 143 (137-145) mmol/L Potassium 4.6 (3.6-5.0) mmol/L Chloride 103.8 (98-107) mmol/L Carbon Dioxide 23 (22-30) mmol/L Anion Gap 21 mmol/L BUN 82 H (9-20) mg/dL Creatinine 14.8 H (0.8-1.3) mg/dL Estimated GFR 4 ml/min BUN/Creatinine Ratio 6 % Glucose 89 (75-100) mg/dL Calcium 8.5 (8.4-10.2) mg/dL Phosphorus 6.50 H (2.5-4.5) mg/dL Magnesium 2.30 (1.7-2.3) mg/dL Total Bilirubin 0.20 (0.1-1.2) mg/dL AST 8 (5-40) units/L ALT 8 (7-56) units/L Alkaline Phosphatase 61 (35-129) units/L NT-Pro-B Natriuret Pep 1559 H (0-900) pg/mL Total Protein 6.8 (6.3-8.2) g/dL Albumin 4.2 (3.9-5) g/dL Albumin/Globulin Ratio 1.6 % Critical care attestation.: If time is entered above; I have spent that time in minutes in the direct care of this critically ill patient, excluding procedure time. ED Disposition Clinical Impression: End-stage renal disease on hemodialysis, Peritoneal dialysis catheter in place Disposition: HOME / SELF CARE / HOMELESS Is pt being admited?: No Does the pt Need Aspirin: No Condition: Good Additional Instructions: Please apply warm compresses to the left lower quadrant peritoneal dialysis catheter. Patient may take [id number] Tylenol/acetaminophen 650 mg, every 4-6 hours as needed for physical pain. Please take the antibiotics as directed. Please continue current outpatient hemodialysis schedule. Do not use the peritoneal dialysis catheter until cleared to do so by your conference planning manager. Follow-up this week as scheduled for hemodialysis. Follow-up with your primary care doctor or conference planning manager within the next week. Please return to the emergency room right away with new pain, worsened pain, justyna ration of pain, projectile vomiting, change in mental status, confusion, inability tolerate liquid feeds, new, worsened or different symptoms not present on the initial emergency room evaluation Referrals: PRANAY WATKINS MD [Staff Physician] - 3-5 Days Forms: Work/School Release Form(ED)
[2022-03-07] MEDS ORDERED: ACETAMINOPHEN 325 MG TAB PO STA (18:47)
[2022-03-07 20:09] VITALS: BP 165/97
--- NOTE | 2022-03-08 18:01 | Electrocardiograph Report ---
[facility] Test Date: 2022-03-07 Test Time: 15:49:49 Pat Name: NATHAN DREW Department: Room: Gender: M Internal Communications Intern: OFFICE SUPPORT CLERK : [id number] Requested By: HARLEY SAUNDERS Order Number: [id number] Reading MD: Aaron Rosales Measurements Intervals [place] Rate: 71 P: 62 CO: 168 QRS: -31 QRSD: 102 T: 191 QT: 412 QTc: 447 Interpretive Statements Sinus rhythm Left axis deviation Lateral T wave inversions, consider LVH versus ischemia No previous ECG available for comparison Electronically Signed On 03-08-2022 18:00:59 EDT by Aaron Rosales
== END 2022-03-07 20:17 | disposition home or self-care (01) ==
LOC: ED 14:14
DX: N18.6 End stage renal disease (principal); Z49.02 Encounter for fitting and adjustment of peritoneal dialysis catheter
CPT/HCPCS: 36415; 80053; 83735; 83880; 84100; 85027; 93005; 99283

== ENCOUNTER 2022-05-01 17:53 | Emergency (ER) | payer MEDICARE ==
[2022-05-01 19:19] LABS: Basophils # (Auto) 0.1 K/mm3 (0.0-0.1); Basophils % (Auto) 0.7 % (0.0-1.8); Eosinophils # (Auto) 0.3 K/mm3 (0.0-0.4); Eosinophils % (Auto) 2.9 % (0.0-4.3); Hematocrit 37.3 % (35.5-45.6); Hemoglobin 12.1 gm/dl (11.8-15.2); Lymphocytes # (Auto) 1.2 K/mm3 (1.2-5.4); Lymphocytes % (Auto) 11.7 % (13.4-35.0); Mean Corpuscular HGB Conc 33 % (32-34); Mean Corpuscular Volume 102 fl (84-94); Monocytes # (Auto) 0.5 K/mm3 (0.0-0.8); Monocytes % (Auto) 4.7 % (0.0-7.3); Platelet Count 187 K/mm3 (140-440); Red Blood Count 3.64 M/mm3 (3.65-5.03); Red Cell Distribution Width 15.5 % (13.2-15.2)
[2022-05-01 20:59] LABS: Albumin 4.3 g/dL (3.9-5); Calcium 8.7 mg/dL (8.4-10.2)
--- NOTE | 2022-05-02 08:18 | Emergency Department Report ---
ED General Adult HPI - General Chief complaint: Medical Clearance Stated complaint: MISSED DIALYSIS PUI?: No Time Seen by Provider: 05/02/22 08:02 Source: patient Mode of arrival: Ambulatory Limitations: No Limitations - History of Present Illness Initial comments: Patient is a 51-year-old male that comes to the emergency room after missing 2 HD sessions. Patient states that he missed dialysis because he was out of town he states he is a patient of Dr. Watkins and gets dialyzed at [facility]. However, because he missed 1 session they told him he had to come to the ER. Patient endorses some shortness of breath. His blood pressure is elevated on admission. -: Gradual, days(s) Worsens with: none Associated Symptoms: denies other symptoms Treatments Prior to Arrival: none - Related Data Previous Rx's Medication Instructions Recorded Last Taken Type Aspirin EC [Halfprin EC] 81 mg PO QDAY #30 tablet. 10/17/18 Unknown Rx AtorvaSTATin [Lipitor] 40 mg PO QHS #30 tablet 10/17/18 Unknown Rx amLODIPine 10 mg PO QDAY #30 tablet 10/17/18 Unknown Rx carvediloL [Coreg] 12.5 mg PO BID #60 tablet 10/17/18 Unknown Rx hydrALAZINE [Apresoline TAB] 100 mg PO Q8HR #90 tab 10/17/18 Unknown Rx Doxycycline Hyclate [Doxycycline 100 mg PO Q12HR #12 tab 03/07/22 Unknown Rx Hyclate TAB] Allergies Allergy/AdvReac Type Severity Reaction Status Date / Time No Known Allergies Allergy Verified 03/07/22 15:41 ED Review of Systems ROS: Stated complaint: MISSED DIALYSIS Other details as noted in HPI Comment: All other systems reviewed and negative ED Past Medical Hx - Past Medical History Previous Medical History?: Yes Hx Hypertension: Yes Hx Renal Disease: Yes (Dialysis TTS) Hx Seizures: Yes (PT STATES 1 SEIZURE ONLY A FEW YRS AGO) Hx HIV: No Additional medical history: "kidney infection" - Surgical History Past Surgical History?: Yes Additional Surgical History: left arm surg due to fx. - Family History Family history: no significant - Social History Smoking Status: Never Smoker Substance Use Type: None - Medications Home Medications: Home Medications Medication Instructions Recorded Confirmed Last Taken Type Aspirin EC [Halfprin EC] 81 mg PO QDAY #30 tablet. 10/17/18 12/24/19 Unknown Rx AtorvaSTATin [Lipitor] 40 mg PO QHS #30 tablet 10/17/18 12/24/19 Unknown Rx amLODIPine 10 mg PO QDAY #30 tablet 10/17/18 12/24/19 Unknown Rx carvediloL [Coreg] 12.5 mg PO BID #60 tablet 10/17/18 12/24/19 Unknown Rx hydrALAZINE [Apresoline TAB] 100 mg PO Q8HR #90 tab 10/17/18 12/24/19 Unknown Rx Doxycycline Hyclate [Doxycycline 100 mg PO Q12HR #12 tab 03/07/22 Unknown Rx Hyclate TAB] ED Physical Exam - General Limitations: No Limitations General appearance: alert, in no apparent distress - Head Head exam: Present: atraumatic, normocephalic - Eye Eye exam: Present: normal appearance - ENT ENT exam: Present: mucous membranes moist - Neck Neck exam: Present: normal inspection - Respiratory Respiratory exam: Present: normal lung sounds bilaterally. Absent: respiratory distress - Cardiovascular Cardiovascular Exam: Present: regular rate, normal rhythm. Absent: systolic murmur, diastolic murmur, rubs, gallop - GI/Abdominal GI/Abdominal exam: Present: soft, normal bowel sounds - Rectal Rectal exam: Present: deferred - Extremities Exam Extremities exam: Present: normal inspection - Back Exam Back exam: Present: normal inspection - Neurological Exam Neurological exam: Present: alert, oriented X3 - Psychiatric Psychiatric exam: Present: normal affect, normal mood - Skin Skin exam: Present: warm, dry, intact, normal color. Absent: rash ED Course Vital Signs 05/01/22 18:28 Temperature 97.9 F Pulse Rate 75 Respiratory 20 Rate Blood Pressure 201/115 O2 Sat by Pulse 100 Oximetry ED Medical Decision Making - Lab Data Result diagrams: 05/01/22 18:42 05/01/22 18:42 - Medical Decision Making Vital Signs 05/01/22 18:28 Temperature 97.9 F Pulse Rate 75 Respiratory 20 Rate Blood Pressure 201/115 O2 Sat by Pulse 100 Oximetry clonidine po ordered Lab Results 05/01/22 05/01/22 Range/Units 18:42 18:42 WBC 9.9 (4.5-11.0) K/mm3 RBC 3.64 L (3.65-5.03) M/mm3 Hgb 12.1 (11.8-15.2) gm/dl Hct 37.3 (35.5-45.6) % MCV 102 H (84-94) fl MCH 33 H (28-32) pg MCHC 33 (32-34) % RDW 15.5 H (13.2-15.2) % Plt Count 187 (140-440) K/mm3 Lymph % (Auto) 11.7 L (13.4-35.0) % [place] % (Auto) 4.7 (0.0-7.3) % Eos % (Auto) 2.9 (0.0-4.3) % Baso % (Auto) 0.7 (0.0-1.8) % Lymph # (Auto) 1.2 (1.2-5.4) K/mm3 [place] # (Auto) 0.5 (0.0-0.8) K/mm3 Eos # (Auto) 0.3 (0.0-0.4) K/mm3 Baso # (Auto) 0.1 (0.0-0.1) K/mm3 Seg Neutrophils % 80.0 H (40.0-70.0) % Seg Neutrophils # 8.0 H (1.8-7.7) K/mm3 Sodium 143 (137-145) mmol/L Potassium 5.6 H (3.6-5.0) mmol/L Chloride 105.9 (98-107) mmol/L Carbon Dioxide 20 L (22-30) mmol/L Anion Gap 23 mmol/L BUN 90 H (9-20) mg/dL Creatinine 15.0 H (0.8-1.3) mg/dL Estimated GFR 4 ml/min BUN/Creatinine Ratio 6 % Glucose 90 (75-100) mg/dL Calcium 8.7 (8.4-10.2) mg/dL Total Bilirubin 0.40 (0.1-1.2) mg/dL AST 12 (5-40) units/L ALT 7 (7-56) units/L Alkaline Phosphatase 59 (35-129) units/L Total Protein 7.5 (6.3-8.2) g/dL Albumin 4.3 (3.9-5) g/dL Albumin/Globulin Ratio 1.3 % staffed with nephrology HD orders will be placed for pt pt updated Patient staffed with Dr. EPSTEIN ER attending RN aware of patient going for HD and need for clonidine. Blood pressure will be monitored. Patient has been updated. Disposition from pacu rn status post HD. - Differential Diagnosis esrd Critical care attestation.: If time is entered above; I have spent that time in minutes in the direct care of this critically ill patient, excluding procedure time. ED Disposition Clinical Impression: ESRD (end stage renal disease), Hyperkalemia, Hypertension, Non-adherence to medical treatment Disposition: 30 STILL A PATIENT Is pt being admited?: Yes Does the pt Need Aspirin: No Condition: Stable Instructions: Dialysis, Hypertension (ED) Time of Disposition: 08:18
[2022-05-02] MEDS ORDERED: cloNIDine 0.1 MG TAB PO ONE (08:33)
[2022-05-02] MEDS: cloNIDine 0.2 MG TAB PO ONE ×2 (08:40→13:42)
[2022-05-02] MEDS ORDERED: SODIUM CHLORIDE 0.9% 100 ML IV PRN ×2 (09:16→09:34)
--- NOTE | 2022-05-02 09:16 | Consultation ---
History of Present Illness - Reason for Consult Consult date: 05/02/22 end stage renal disease - History of Present Illness This is a 51 year-old man with ESRD who presents for missed HD, hyperkalemia, dyspnea Patient usually dialyzes // at [facility]. Last HD 04/25. Notes missed last two sessions as he was out of town. Denies any recent issues with HD, including dizziness, lightheadedness, cramping, chest pain on HD. Currently, he notes dyspnea, edema. Denies any recent access issues, nausea, vomiting, headaches. Past History Past Medical History: ESRD, hypertension Past Surgical History: No surgical history Social history: no significant social history Family history: no significant family history Medications and Allergies Allergies Allergy/AdvReac Type Severity Reaction Status Date / Time No Known Allergies Allergy Verified 03/07/22 15:41 Home Medications Medication Instructions Recorded Confirmed Last Taken Type Aspirin EC [Halfprin EC] 81 mg PO QDAY #30 tablet. 10/17/18 12/24/19 Unknown Rx AtorvaSTATin [Lipitor] 40 mg PO QHS #30 tablet 10/17/18 12/24/19 Unknown Rx amLODIPine 10 mg PO QDAY #30 tablet 10/17/18 12/24/19 Unknown Rx carvediloL [Coreg] 12.5 mg PO BID #60 tablet 10/17/18 12/24/19 Unknown Rx hydrALAZINE [Apresoline TAB] 100 mg PO Q8HR #90 tab 10/17/18 12/24/19 Unknown Rx Doxycycline Hyclate [Doxycycline 100 mg PO Q12HR #12 tab 03/07/22 Unknown Rx Hyclate TAB] Review of Systems All systems: negative (as per HPI) Exam - Vital Signs Vital signs: Vital Signs Temp Pulse Resp BP Pulse Ox 97.9 F 75 20 201/115 100 05/01/22 18:28 05/01/22 18:28 05/01/22 18:28 05/01/22 18:28 05/01/22 18:28 - Physical Exam Narrative exam: Constitutional: no acute distress Head: NC/AT Neck: supple Lungs: clear to auscultation CV: RRR, no M/R/G Abdomen: soft, non-tender, bowel sounds present Back: nontender Extremities: no edema, pulses WNL Skin: intact Neuro: no focal deficits, alert and oriented x4 Results - Lab Results 05/01/22 18:42 05/01/22 18:42 Most recent lab results Calcium 8.7 mg/dL (8.4-10.2) 05/01/22 18:42 Assessment and Plan This is a 51 year old man who presents with missed HD, dyspnea # ESRD: HD today for hyperkalemia, azotemia/toxin removal, volume control - daily labs - renally dose meds - avoid nephrotoxins - renal diet - verbal consent obtained for HD - if patient stable after HD, can discharge home and return to outpatient facili ty on 05/04 # Anemia: last hemoglobin 12.1, no indication for acute ESAs # HTN: UF as tolerated. BP high likely due to volume, resume home antihypertensives # Secondary Hyperparathyroidism: continue home binders as needed, vitamin D analogs prn
[2022-05-02 13:37] LABS: Hepatitis B Surface Antigen Non-Reactive (Negative); Hepatitis C Virus Antibody Non-Reactive (NonReactive)
[2022-05-03 07:33] VITALS: BP 175/90
== END 2022-05-03 08:07 | disposition home or self-care (01) ==
LOC: ED 17:53
DX: Z91.19 Patient's noncompliance with other medical treatment and regimen (principal); E87.5 Hyperkalemia; I12.0 Hypertensive chronic kidney disease with stage 5 chronic kidney disease or end stage renal disease; N18.6 End stage renal disease; Z99.2 Dependence on renal dialysis; R56.9 Unspecified convulsions; Z98.890 Other specified postprocedural states
CPT/HCPCS: 36415; 80053; 80074; 83735; 84100; 85025; 99284